=== PATIENT | male | born 1965 | race African-American/Black ===

== ENCOUNTER 2019-11-01 19:27 | Emergency (ER) | payer SELFPAY ==
--- NOTE | 2019-11-01 19:52 | EDM.PDOC ---
ED HPI GENERAL MEDICAL PROBLEM - General Chief Complaint: Respiratory Problem Stated Complaint: ASTHMA Time Seen by Provider: 11/01/19 19:52 Source of Information: Reports: Patient History Limitations: Reports: No Limitations - History of Present Illness INITIAL COMMENTS - FREE TEXT/NARRATIVE: HISTORY AND PHYSICAL: History of present illness: Patient is a 53-year-old male presents to the ED with complaint of COPD exacerbation. Patient states he has had wheezing and occasional shortness of breath for the past week. He reports a dry cough but this is not new or worsened than his usual. He denies fevers or chills, chest pain and no sick contacts. He states he has been using his rescue inhaler and duoneb about every 4 hours and this does help with wheezing. 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 Review of systems: As per history of present illness and below otherwise all systems reviewed and negative. Past medical history: As per history of present illness and as reviewed below otherwise noncontributory. Surgical history: As per history of present illness and as reviewed below otherwise noncontributory. Social history: No reported history of drug or alcohol abuse. Family history: As per history of present illness and as reviewed below otherwise noncontributory. Physical exam: General: Patient sitting comfortably in no acute distress and nontoxic appearing HEENT: Atraumatic, normocephalic, pupils reactive, negative for conjunctival pallor or scleral icterus, mucous membranes moist, throat clear, neck supple, nontender, trachea midline. No meningeal signs. Lungs: Wheezing throughout all lung maddox chest nontender. Heart: S1S2, regular, negative for clicks, rubs, or overt murmur. Abdomen: Soft, nondistended, nontender. Negative for masses or hepatosplenomegaly. Negative for costovertebral tenderness. No rigidity, rebound , guarding. Pelvis: Stable nontender. Genitourinary: Deferred. Rectal: Deferred. Extremities: Atraumatic, negative for cords or calf pain. Neurovascular unremarkable. Neuro: Awake, alert, oriented. Cranial nerves II through XII unremarkable. Cerebellum unremarkable. Motor and sensory unremarkable throughout. Exam nonfocal. Notes: Diagnostics: CXR declined labs Therapeutics: Solumedrol 125mg IM Prescriptions: Ventolin inhaler Medrol dosepak Azithromycin Impression: COPD exacerbation Plan: Take medications as prescribed Follow up with primary care provider Return to ED as needed as discussed Definitive disposition and diagnosis as appropriate pending reevaluation and review of above. - Related Data Allergies Allergy/AdvReac Type Severity Reaction Status Date / Time No Known Allergies Allergy Verified 11/01/19 19:51 Home Meds: Home Meds Albuterol Sulfate [Albuterol Sulfate Hfa] 2 puff INH Q4H PRN 11/01/19 [History] Albuterol [Ventolin HFA] 1 puff INH Q4H #1 inhaler 11/01/19 [Rx] Azithromycin [Zithromax] 250 mg PO ASDIRECTED #1 dosepk 11/01/19 [Rx] methylPREDNISolone [Medrol] 4 mg PO ASDIRECTED #1 tab.ds.pk 11/01/19 [Rx] ED ROS GENERAL - Review of Systems Review Of Systems: Comprehensive ROS is negative, except as noted in HPI. ED EXAM, GENERAL - Physical Exam Exam: See Below (see dictation) Course - Vital Signs Last Recorded V/S: Last Vital Signs Temp 97.3 F 11/01/19 19:41 Pulse 92 11/01/19 19:41 Resp 20 11/01/19 19:41 BP 148/89 H 11/01/19 19:41 Pulse Ox 96 11/01/19 19:41 - Orders/Labs/Meds Meds: Medications Discontinued Medications Generic Name Dose Route Start Last Admin Trade Name Freq PRN Reason Stop Dose Admin Methylprednisolone Sodium Succinate 125 mg 11/01/19 20:01 11/01/19 20:16 Solu-Medrol IVPUSH 11/01/19 20:02 Not Given ONETIME ONE Methylprednisolone Sodium Succinate 125 mg 11/01/19 20:10 11/01/19 20:14 Solu-Medrol IM 11/01/19 20:11 125 mg ONETIME ONE Administration Departure - Departure Time of Disposition: 20:59 Disposition: Home, Self-Care 01 Condition: Good Clinical Impression: COPD exacerbation - Discharge Information Prescriptions: Albuterol [Ventolin HFA] 1 puff INH Q4H #1 inhaler Azithromycin [Zithromax] 250 mg PO ASDIRECTED #1 dosepk methylPREDNISolone [Medrol] 4 mg PO ASDIRECTED #1 tab.ds.pk Referrals: PCP,None [Primary Care Provider] - Forms: ED Department Discharge Additional Instructions: The following information is given to patients seen in the emergency department who are being discharged to home. This information is to outline your options for follow-up care. We provide all patients seen in our emergency department with a follow-up referral. The need for follow-up, as well as the timing and circumstances, are variable depending upon the specifics of your emergency department visit. If you don't have a primary care physician on staff, we will provide you with a referral. We always advise you to contact your personal physician following an emergency department visit to inform them of the circumstance of the visit and for follow-up with them and/or the need for any referrals to a consulting specialist. The emergency department will also refer you to a specialist when appropriate. This referral assures that you have the opportunity for follow-up care with a specialist. All of these measure are taken in an effort to provide you with optimal care, which includes your follow-up. Under all circumstances we always encourage you to contact your private physician who remains a resource for coordinating your care. When calling for follow-up care, please make the office aware that this follow-up is from your recent emergency room visit. If for any reason you are refused follow-up, please contact the [facility] Emergency Department at and asked to speak to the emergency department charge nurse. [facility] [address] [place] [address] [place] [address] Take medications as prescribed Follow up with primary care provider Return to ED as needed as discussed Sepsis Event Note - Evaluation Sepsis Screening Result: No Definite Risk - Focused Exam Vital Signs: Vital Signs Temp Pulse Resp BP Pulse Ox 11/01/19 19:41 97.3 F 92 20 148/89 H 96 Date Exam was Performed: 11/01/19 Time Exam was Performed: 21:00
[2019-11-01] MEDS ORDERED: methylPREDNISolone Sodium Succinate 125 MG/2 ML SDV IVPUSH ONE (20:01)
[2019-11-01] MEDS ORDERED: methylPREDNISolone Sodium Succinate 125 MG/2 ML SDV IM ONE (20:10)
--- NOTE | 2019-11-01 20:55 | CR ---
INDICATION: pt w/cp, sob. INDICATION: Chest pain, shortness of breath. TECHNIQUE: Chest 1 view. COMPARISON: None FINDINGS: Cardiovascular and mediastinum: Heart size and vasculature are normal in caliber and appearance. Mediastinum is within normal limits. Lungs and pleural space: Lungs are clear. No sign of infiltrate or mass. No sign of pleural effusion. No pneumothorax. Bones and soft tissues: No significant findings. IMPRESSION: Lungs are clear. Dictated by Jerson Martinez MD @ 11/01/2019 8:54:51 PM Dictated by: Jerson Martinez MD @ 11/01/2019 20:54:56 (Electronically Signed)
== END 2019-11-01 21:16 | disposition home or self-care (01) ==
LOC: MW.ED 19:27
DX: J44.1 Chronic obstructive pulmonary disease with (acute) exacerbation (principal)
CPT/HCPCS: 71045; 96372; 99284; J2930; 99283

== ENCOUNTER 2019-12-14 09:39 | Emergency (ER) | payer OTHER ==
[2019-12-14] MEDS ORDERED: Doxycycline 100 MG Cap PO ONE (10:07)
[2019-12-14] MEDS ORDERED: Albuterol/Ipratropium 3.0-0.5 MG/3 ML Neb Soln NEB ONE (10:07)
--- NOTE | 2019-12-14 10:19 | EDM.PDOC ---
ED [facility] GENERAL MEDICAL PROBLEM - General Chief Complaint: Respiratory Problem Stated Complaint: ASTHMA Time Seen by Provider: 12/14/19 09:48 - History of Present Illness INITIAL COMMENTS - FREE TEXT/NARRATIVE: HISTORY AND PHYSICAL: History of present illness: This 53-year-old male with a past medical history of COPD, asthma, and tobacco dependence resolved presents to the emergency department complaining of shortness of breath. He has been using his rescue inhaler all morning and has not been getting better. He tried his nebulizer machine with albuterol and did not improve. He also uses Advair and has not missed any doses. He denies any fever, he has had increased sputum with changes in color, and denies any other symptoms. No other modifying, aggravating or alleviating factors. He rates this as severe. No other associated signs or symptoms. Review of systems: A 10-point review of systems, other than pertinent positives and negatives as stated per HPI, is otherwise negative. Past medical history: As per history of present illness and as reviewed below otherwise noncontributory. Surgical history: As per history of present illness and as reviewed below otherwise noncontributory. Social history: No reported history of drug or alcohol abuse. Family history: As per history of present illness and as reviewed below otherwise noncontributory. Physical exam: VITAL SIGNS: Reviewed. GENERAL: Mild resting tachypnea. No accessory muscle use. No sternocleidomastoid involvement. Appears to be in mild distress HEAD: No signs of head trauma. EYES: Pupils are equal. Extraocular motions intact. EARS: Hearing grossly intact. MOUTH: Oropharynx is normal. NECK: No adenopathy, no JVD. CHEST: Bilateral inspiratory expiratory wheezing. Diminished at the bases. CARDIAC: Regular rate and rhythm. Normal S1 and S2, without murmurs, gallops, or rubs. VASCULAR: Peripheral pulses normal and equal in all extremities. ABDOMEN: Soft, without detectable tenderness. No sign of distention. No rebound or guarding, and no masses palpated. MUSCULOSKELETAL: Good range of motion of all major joints. Extremities without clubbing, cyanosis or edema. NEUROLOGIC EXAM: Alert and oriented x 3. No focal sensory or motor deficits. Speech normal. Follows commands. PSYCHIATRIC: Mood normal. SKIN: No rash or lesions. Initial Differential Diagnosis & Plan: Differential diagnosis includes asthma, chronic obstructive pulmonary disease, hypoxia, bronchitis, influenza, influenza-like illness, pneumonia The patient presents with bronchospasm and has signs and symptoms of COPD exacerbation. I will treat him with DuoNeb, steroids and antibiotics. Plan for discharge home. Definitive disposition and diagnosis as appropriate pending reevaluation and review of above. - Related Data Allergies Allergy/AdvReac Type Severity Reaction Status Date / Time No Known Allergies Allergy Verified 12/14/19 09:56 Home Meds: Home Meds Albuterol [Ventolin HFA] 1 puff INH Q4H #1 inhaler 11/01/19 [Rx] Cetirizine HCl [Zyrtec] 10 mg PO TID 14 Days #40 capsule 12/14/19 [Rx] Doxycycline [Vibramycin] 100 mg PO BID 7 Days #14 tab 12/14/19 [Rx] Ipratropium [Atrovent] 0.5 mg .XX BID #30 neb 12/14/19 [Rx] Lactobacillus 3/Fos/Pantethine [Probiotic & Acidophilus] 1 each PO BID 30 Days # 60 capsule 12/14/19 [Rx] predniSONE [Prednisone] 50 mg PO DAILY 5 Days #5 tablet 12/14/19 [Rx] Past Medical History HEENT History: Reports: None Cardiovascular History: Reports: None Respiratory History: Reports: Asthma, COPD Gastrointestinal History: Reports: None Genitourinary History: Reports: None Musculoskeletal History: Reports: None Neurological History: Reports: None Psychiatric History: Reports: None Endocrine/Metabolic History: Reports: None Hematologic History: Reports: None Immunologic History: Reports: None Oncologic (Cancer) History: Reports: None Dermatologic History: Reports: None - Infectious Disease History Infectious Disease History: Reports: None - Past Surgical History Head Surgeries/Procedures: Reports: None HEENT Surgical History: Reports: None Cardiovascular Surgical History: Reports: None Respiratory Surgical History: Reports: None GI Surgical History: Reports: None Male Surgical History: Reports: None Endocrine Surgical History: Reports: None Neurological Surgical History: Reports: None Musculoskeletal Surgical History: Reports: None Oncologic Surgical History: Reports: None Dermatological Surgical History: Reports: None Social & Family History - Family History Family Medical History: Noncontributory - Tobacco Use Smoking Status *Q: Former Smoker Used Tobacco, but Quit: Yes Month/Year Tobacco Last Used: quit 4 years - Caffeine Use Caffeine Use: Reports: Coffee - Recreational Drug Use Recreational Drug Use: No ED ROS GENERAL - Review of Systems Review Of Systems: Unable To Obtain (see above) Reason Not Obtained: see above ED EXAM, GENERAL - Physical Exam Exam: Not Obtained (see above) Course - Vital Signs Last Recorded V/S: Last Vital Signs Temp 97.1 F 12/14/19 09:57 Pulse 83 12/14/19 09:57 Resp 18 12/14/19 09:57 BP 139/86 12/14/19 09:57 Pulse Ox 97 12/14/19 09:57 - Orders/Labs/Meds Orders: Active Orders 24 hr Category Date Time Status RT Aerosol Therapy [RC] ASDIRECTED Care 12/14/19 10:08 Ordered Meds: Medications Discontinued Medications Generic Name Dose Route Start Last Admin Trade Name Freq PRN Reason Stop Dose Admin Albuterol/Ipratropium 3 ml 12/14/19 10:07 Duoneb 3.0-0.5 Mg/3 Ml NEB 12/14/19 10:08 ONETIME ONE Dexamethasone 10 mg 12/14/19 10:07 Dexamethasone PO 12/14/19 10:08 ONETIME ONE Doxycycline Hyclate 200 mg 12/14/19 10:07 Vibramycin PO 12/14/19 10:08 ONETIME ONE Departure - Departure Time of Disposition: 10:19 Disposition: Home, Self-Care 01 Condition: Good Clinical Impression: COPD exacerbation, Acute bronchospasm - Discharge Information *PRESCRIPTION DRUG MONITORING PROGRAM REVIEWED*: Not Applicable *COPY OF PRESCRIPTION DRUG MONITORING REPORT IN PATIENT ELIECER: Not Applicable Prescriptions: Cetirizine HCl [Zyrtec] 10 mg PO TID 14 Days #40 capsule Doxycycline [Vibramycin] 100 mg PO BID 7 Days #14 tab Ipratropium [Atrovent] 0.5 mg .XX BID #30 neb Lactobacillus 3/Fos/Pantethine [Probiotic & Acidophilus] 1 each PO BID 30 Days # 60 capsule predniSONE [Prednisone] 50 mg PO DAILY 5 Days #5 tablet Instructions: Bronchospasm, Adult, Chronic Obstructive Pulmonary Disease Exacerbation, [id number] Referrals: PCP,None [Primary Care Provider] - Additional Instructions: The following information is given to patients seen in the emergency department who are being discharged to home. This information is to outline your options for follow-up care. We provide all patients seen in our emergency department with a follow-up referral. The need for follow-up, as well as the timing and circumstances, are variable depending upon the specifics of your emergency department visit. If you don't have a primary care physician on staff, we will provide you with a referral. We always advise you to contact your personal physician following an emergency department visit to inform them of the circumstance of the visit and for follow-up with them and/or the need for any referrals to a consulting specialist. The emergency department will also refer you to a specialist when appropriate. This referral assures that you have the opportunity for follow-up care with a specialist. All of these measure are taken in an effort to provide you with optimal care, which includes your follow-up. Under all circumstances we always encourage you to contact your private physician who remains a resource for coordinating your care. When calling for follow-up care, please make the office aware that this follow-up is from your recent emergency room visit. If for any reason you are refused follow-up, please contact the [facility] Emergency Department at and asked to speak to the emergency department charge nurse. Thank you for coming to [facility] emergency department for your healthcare needs today. Please return immediately for fever, trouble breathing , or any other concerns. We have diagnosed you with COPD exacerbation based on your symptoms and findings today. You do not have clear findings of pneumonia. We will start you on antibiotics, steroids and add Atrovent to your nebulizer for at home. You do not need to use this every day. I recommend that you use the Atrovent twice a day for the next 2 to 3 days. Please use the steroids as directed. Remember we are always happy to see you and return as you feel as needed. Sepsis Event Note - Evaluation Sepsis Screening Result: No Definite Risk - Focused Exam Vital Signs: Vital Signs Temp Pulse Resp BP Pulse Ox 12/14/19 09:57 97.1 F 83 18 139/86 97 Date Exam was Performed: 12/14/19 Time Exam was Performed: 10:11 - My Orders Last 24 Hours: My Active Orders 12/14/19 10:08 RT Aerosol Therapy [RC] ASDIRECTED - Assessment/Plan Last 24 Hours: My Active Orders 12/14/19 10:08 RT Aerosol Therapy [RC] ASDIRECTED
[2019-12-14] MEDS ORDERED: Dexamethasone 4 MG Tab PO ONE (10:22)
== END 2019-12-14 10:45 | disposition home or self-care (01) ==
LOC: MW.ED 09:39
DX: J44.1 Chronic obstructive pulmonary disease with (acute) exacerbation (principal); J98.01 Acute bronchospasm; Z87.891 Personal history of nicotine dependence
CPT/HCPCS: 99284; A9270; J8540; 99283; J7620-GY

== ENCOUNTER 2020-01-17 14:52 | Observation (INO) | payer OTHER ==
[2020-01-17] MEDS ORDERED: Albuterol 8 GM Inhaler INH ONE (15:05)
[2020-01-17] MEDS ORDERED: methylPREDNISolone Sodium Succinate 125 MG/2 ML SDV IVPUSH ONE (15:06)
--- NOTE | 2020-01-17 15:12 | EDM.PDOC ---
ED HPI GENERAL MEDICAL PROBLEM - General Chief Complaint: Respiratory Problem Stated Complaint: SOB Time Seen by Provider: 01/17/20 14:53 - History of Present Illness INITIAL COMMENTS - FREE TEXT/NARRATIVE: 54-year-old male with history of COPD on Advair and pro-air presenting with persistent shortness of breath. Patient feels like his symptoms have really been going on for nearly a month. At the end of November he was seen here and treated with steroids neb treatments and a course of doxycycline. He reports some minimal improvement with that. He traveled home to [place] on December 28 and at that time ended up hospitalized briefly. He reports COVID test was negative at that time. He presents again today with persistent shortness of breath worse over the last week associated with a cough that is occasionally productive. He endorses chest pain during the active coughing but denies chest pain otherwise no lower extremity pain or swelling no history of DVT or PE. Denies history of CAD other heart disease. Denies exertional chest pain denies fever. Does report one episode of posttussive emesis last night. Symptoms are constant moderate to severe without alleviating factors radiation or other associated symptoms. - Related Data Allergies Allergy/AdvReac Type Severity Reaction Status Date / Time No Known Allergies Allergy Verified 01/17/20 15:01 Home Meds: Home Meds Albuterol [Ventolin HFA] 1 puff INH Q4H #1 inhaler 11/01/19 [Rx] Ipratropium [Atrovent] 0.5 mg .XX BID #30 neb 12/14/19 [Rx] Past Medical History HEENT History: Reports: None Cardiovascular History: Reports: None Respiratory History: Reports: Asthma, COPD Gastrointestinal History: Reports: None Genitourinary History: Reports: None Musculoskeletal History: Reports: None Neurological History: Reports: None Psychiatric History: Reports: None Endocrine/Metabolic History: Reports: None Hematologic History: Reports: None Immunologic History: Reports: None Oncologic (Cancer) History: Reports: None Dermatologic History: Reports: None - Infectious Disease History Infectious Disease History: Reports: None - Past Surgical History Head Surgeries/Procedures: Reports: None HEENT Surgical History: Reports: None Cardiovascular Surgical History: Reports: None Respiratory Surgical History: Reports: None GI Surgical History: Reports: None Male Surgical History: Reports: None Endocrine Surgical History: Reports: None Neurological Surgical History: Reports: None Musculoskeletal Surgical History: Reports: None Oncologic Surgical History: Reports: None Dermatological Surgical History: Reports: None Social & Family History - Family History Family Medical History: Noncontributory - Tobacco Use Smoking Status *Q: Never Smoker - Caffeine Use Caffeine Use: Reports: Coffee - Recreational Drug Use Recreational Drug Use: No ED ROS GENERAL - Review of Systems Review Of Systems: See Below Free Text/Narrative/Comment: General: No fever. Skin: No rash. Eyes: No vision problems. ENT: No sore throat. Neck: No neck stiffness. Respiratory: Per HPI Cardiac: No chest pain. Gastrointestinal: No nausea, vomiting or abdominal pain. Urinary: No dysuria. Musculoskeletal: No myalgias/arthralgias. Neurologic: No headache. ED EXAM, GENERAL - Physical Exam Exam: See Below Free Text/Narrative:: General Appearance: No acute distress, appears comfortable Skin: No rash HEENT: Normocephalic/atraumatic, sclera anicteric, mucous membranes moist Neck: Normal range of motion Chest and Lungs: Bilateral diffuse high-pitched monophasic expiratory wheezing with prolonged expiratory phase no accessory muscle use Cardiovascular: Regular rate and rhythm, no murmur, no lower extremity edema Abdomen: Soft, non-tender Back: Normal Musculoskeletal: No edema or tenderness Neurologic: Awake, alert, no obvious deficits, moving all extremities Psychiatric: Appropriate, cooperative EKG INTERPRETATION EKG Date: 01/17/20 Time: 15:10 Rhythm: NSR Rate (Beats/Min): 81 [place]: Normal P-Wave: Present EKG Interpretation Comments: EKG demonstrates normal sinus rhythm there are marked sawtooth appearing flutter waves in 2 3 aVF and aVR. However, I would favor artifact given the lack of presence in the other leads and the fact that it is otherwise convincingly normal sinus. Patient does have lateral T wave inversions that could represent ischemia. But no ST elevations or depressions. Course - Vital Signs Last Recorded V/S: Last Vital Signs Temp 96.2 F L 01/17/20 14:58 Pulse 91 01/17/20 16:27 Resp 17 01/17/20 16:27 BP 116/77 01/17/20 16:27 Pulse Ox 93 L 01/17/20 16:27 - Orders/Labs/Meds Orders: Active Orders 24 hr Category Date Time Status Patient Status [ADT] Stat ADT 01/17/20 16:55 Ordered EKG 12 Lead [EKG Documentation Completion] [RC] STAT Care 01/17/20 15:07 Active EKG 12 Lead [EKG Documentation Completion] [] STAT Care 01/17/20 16:42 Active RT Post Treatment Assessment [RC] Click to Edit Care 01/17/20 15:05 Active RT Pre-Treatment Assessment [RC] Click to Edit Care 01/17/20 15:05 Active Magnesium Sulfate/Water [Magnesium Sulfate in Water Med 01/17/20 16:55 Active Premix] 2 gm Premix Bag 1 bag IV ONETIME Medication Orders Magnesium Sulfate 2 gm/ Premix 50 mls @ 50 mls/hr IV ONETIME ONE Stop: 01/17/20 17:54 Labs: Laboratory Tests 01/17/20 01/17/20 01/17/20 Range/Units 15:25 15:25 15:25 WBC 12.32 H (4.0-11.0) K/uL RBC 5.35 (4.50-5.90) M/uL Hgb 15.3 (13.0-17.0) g/dL Hct 43.8 (38.0-50.0) % MCV 81.9 (80.0-98.0) fL MCH 28.6 (27.0-32.0) pg MCHC 34.9 (31.0-37.0) g/dL RDW Std Deviation 46.0 (28.0-62.0) fl RDW Coeff of Cortes 15 (11.0-15.0) % Plt Count 224 (150-400) K/uL MPV 11.40 (7.40-12.00) fL Add Manual Diff YES Neutrophils % (Manual) 74 (48.0-80.0) % Band Neutrophils % 7 % Lymphocytes % (Manual) 12 L (16.0-40.0) % Monocytes % (Manual) 5 (0.0-15.0) % Eosinophils % (Manual) 1 (0.0-7.0) % Basophils % (Manual) 1 (0.0-1.5) % Absolute Seg Neuts 9.1 H (1.4-5.7) Band Neutrophils # 0.9 Lymphocytes # (Manual) 1.5 (0.6-2.4) Monocytes # (Manual) 0.6 (0.0-0.8) Eosinophils # (Manual) 0.1 (0.0-0.7) Basophils # (Manual) 0.1 (0.0-0.1) D-Dimer, Quantitative (0.0-0.50) mg/L FEU Sodium 142 (136-148) mmol/L Potassium 3.4 L (3.5-5.1) mmol/L Chloride 104 (98-107) mmol/L Carbon Dioxide 27.9 (21.0-32.0) mmol/L BUN 14 (7.0-18.0) mg/dL Creatinine 1.3 (0.8-1.3) mg/dL Est Cr Clr Drug Dosing 60.03 mL/min Estimated GFR (MDRD) > 60.0 ml/min Glucose 191 H (74-106) mg/dL Calcium 8.8 (8.5-10.1) mg/dL Troponin I < 0.050 (0.000-0.056) ng/mL B-Natriuretic Peptide 49 (<100) PG/ML SARS Virus RNA (PCR) (NEGATIVE) 01/17/20 01/17/20 Range/Units 15:25 15:34 WBC (4.0-11.0) K/uL RBC (4.50-5.90) M/uL Hgb (13.0-17.0) g/dL Hct (38.0-50.0) % MCV (80.0-98.0) fL MCH (27.0-32.0) pg MCHC (31.0-37.0) g/dL RDW Std Deviation (28.0-62.0) fl RDW Coeff of Cortes (11.0-15.0) % Plt Count (150-400) K/uL MPV (7.40-12.00) fL Add Manual Diff Neutrophils % (Manual) (48.0-80.0) % Band Neutrophils % % Lymphocytes % (Manual) (16.0-40.0) % Monocytes % (Manual) (0.0-15.0) % Eosinophils % (Manual) (0.0-7.0) % Basophils % (Manual) (0.0-1.5) % Absolute Seg Neuts (1.4-5.7) Band Neutrophils # Lymphocytes # (Manual) (0.6-2.4) Monocytes # (Manual) (0.0-0.8) Eosinophils # (Manual) (0.0-0.7) Basophils # (Manual) (0.0-0.1) D-Dimer, Quantitative 0.43 (0.0-0.50) mg/L FEU Sodium (136-148) mmol/L Potassium (3.5-5.1) mmol/L Chloride (98-107) mmol/L Carbon Dioxide (21.0-32.0) mmol/L BUN (7.0-18.0) mg/dL Creatinine (0.8-1.3) mg/dL Est Cr Clr Drug Dosing mL/min Estimated GFR (MDRD) ml/min Glucose (74-106) mg/dL Calcium (8.5-10.1) mg/dL Troponin I (0.000-0.056) ng/mL B-Natriuretic Peptide (<100) PG/ML SARS Virus RNA (PCR) NEGATIVE (NEGATIVE) Meds: Medications Generic Name Dose Route Start Last Admin Trade Name Freq PRN Reason Stop Dose Admin Magnesium Sulfate 2 gm/ Premix 50 mls @ 50 mls/hr 01/17/20 16:55 IV 01/17/20 17:54 ONETIME ONE Discontinued Medications Generic Name Dose Route Start Last Admin Trade Name Freq PRN Reason Stop Dose Admin Albuterol 4 gm 01/17/20 15:05 01/17/20 15:15 Ventolin Hfa INH 01/17/20 15:06 4 puff ONETIME ONE Administration Magnesium Sulfate 2 gm/ Sodium 54 mls @ 162 mls/hr 01/17/20 16:45 Chloride IV ASDIRECTED KVNG Protocol 6 GM/HR Methylprednisolone Sodium Succinate 125 mg 01/17/20 15:06 01/17/20 15:15 Solu-Medrol IVPUSH 01/17/20 15:07 125 mg ONETIME ONE Administration Departure - Departure Time of Disposition: 16:59 Disposition: Refer to Observation Condition: Fair Clinical Impression: Bronchospasm - Discharge Information *PRESCRIPTION DRUG MONITORING PROGRAM REVIEWED*: Not Applicable *COPY OF PRESCRIPTION DRUG MONITORING REPORT IN PATIENT ELIECER: Not Applicable Referrals: PCP,None [Primary Care Provider] - Forms: ED Department Discharge Sepsis Event Note (ED) - Evaluation Sepsis Screening Result: No Definite Risk - Focused Exam Vital Signs: Vital Signs Temp Pulse Resp BP Pulse Ox 01/17/20 16:27 91 17 116/77 93 L 01/17/20 15:58 96 16 144/89 H 100 01/17/20 14:58 96.2 F L 90 18 123/81 94 L - My Orders Last 24 Hours: My Active Orders 01/17/20 15:05 RT Post Treatment Assessment [RC] Click to Edit RT Pre-Treatment Assessment [RC] Click to Edit 01/17/20 15:07 EKG 12 Lead [EKG Documentation Completion] [RC] STAT 01/17/20 16:42 EKG 12 Lead [EKG Documentation Completion] [RC] STAT 01/17/20 16:55 Patient Status [ADT] Stat Magnesium Sulfate/Water [Magnesium Sulfate in Water Premix] 2 gm Premix Bag 1 bag IV ONETIME - Assessment/Plan Last 24 Hours: My Active Orders 01/17/20 15:05 RT Post Treatment Assessment [RC] Click to Edit RT Pre-Treatment Assessment [RC] Click to Edit 01/17/20 15:07 EKG 12 Lead [EKG Documentation Completion] [RC] STAT 01/17/20 16:42 EKG 12 Lead [EKG Documentation Completion] [RC] STAT 01/17/20 16:55 Patient Status [ADT] Stat Magnesium Sulfate/Water [Magnesium Sulfate in Water Premix] 2 gm Premix Bag 1 bag IV ONETIME Assessment:: 54-year-old male presenting with 1 month of persistent shortness of breath and expiratory wheezing that has not responded to typical COPD treatment. Given this we will bronchospasm is certainly a consideration and would treat with albuterol inhaler and Solu-Medrol also need to consider alternative etiologies including pneumonia. This is felt less likely given lack of fever but chest x- ray pending. PE is a consideration as well that said patient would be relatively low risk for this and d-dimer has been sent. New heart disease is a consideration I think that is much less likely in this case there is no lower extremity edema there is no other signs of heart failure he has no prior history of heart disease. That said EKG troponin and BNP ordered. COVID-19 needs to be considered as well. Though he has had negative screen in the past he continues to be symptomatic he is high risk and we no other depending on the testing mechanism use the sensitivity can be as low as 75%. 1700: Patient's labs are normal d-dimer normal initial troponin normal. Repeat EKG shows none of the initial artifact it is clearly sinus he continues to have the lateral T wave inversions but symptoms have been present for many days and troponin was normal. EKG without signs of pneumonia or CHF. COVID was negative. Unfortunately the patient remained short of breath he continues to have audible wheezing that can be heard without a stethoscope. Given this and the failure of extensive outpatient treatment patient discussed in full with the hospitalist and we will admit to telemetry under observation for ongoing treatment and reassessment.
--- NOTE | 2020-01-17 15:29 | CR ---
Chest: Portable view of the chest was obtained. Comparison: Prior chest x-ray of 11/01/19. Heart size and mediastinum are normal. Lungs are clear with no acute parenchymal change. Bony structures are unremarkable. Impression: 1. Nothing acute is appreciated on portable chest x-ray. Diagnostic code #1 This report was dictated in MDT
[2020-01-17 15:56] LABS: BLOOD UREA NITROGEN,BUN 14 mg/dL (7.0-18.0); CARBON DIOXIDE,CO2 27.9 mmol/L (21.0-32.0); CHLORIDE,CL 104 mmol/L (98-107); GLUCOSE RANDOM 191 mg/dL (74-106); POTASSIUM,K 3.4 mmol/L (3.5-5.1); SODIUM,NA 142 mmol/L (136-148)
[2020-01-17] MEDS ORDERED: Magnesium Sulfate/Water 50 ML ONE (16:54)
[2020-01-17] MEDS ORDERED: Magnesium Sulfate/Water 2 GM in Premix Bag 1 BAG IV ONE (16:55)
[2020-01-17] MEDS ORDERED: Lactated Ringers 1,000 ML IV SCH (18:30)
[2020-01-17] MEDS ORDERED: Albuterol/Ipratropium 3.0-0.5 MG/3 ML Neb Soln NEB PRN (18:32)
[2020-01-17] MEDS ORDERED: Potassium Chloride 10% 20 MEQ/15 ML Soln 30 ML UD Cup PO ONE (19:54)
--- NOTE | 2020-01-17 19:56 | PCM.HP.2 ---
H&P History of Present Illness - General Date of Service: 01/17/20 Admit Problem/Dx: Admission Diagnosis/Problem Admission Diagnosis/Problem Bronchospasm - History of Present Illness Initial Comments - Free Text/Narative: 54-year-old male with history of COPD/Asthma on pro-air presenting with shortness of breath. According to th epatiewnt his SOB has been on going for past few weeks , he was prescribed short course of steroids and PO antibiotics (doxycycline) but symptoms persisted after initial improvement.He traveled home to [place] on December 28 and at that time he ended up hospitalized briefly. states he was tested for COVID which was was negative at that time. Patient also c/o persistant cough and some sputum production. Denied any chest pain, other than musculoskeletal pain during coughing, no lower extremity pain or swelling no history of DVT or PE. Denies history of CAD other heart disease, denies fever, chills. Does report one episode of posttussive emesis last night. In the ER most of the lab work was reassuring, his EKG didnt show any acute ischemic changes, but did show some non specific T wave changes likely chronic in nature. CXR unremarkable, Patient received IV steroids and Albuterol in the ER with minimal improvement. Patient was admitted for further management of his persis tent symptoms. - Related Data Allergies/Adverse Reactions: Allergies Allergy/AdvReac Type Severity Reaction Status Date / Time No Known Allergies Allergy Verified 01/17/20 18:32 Home Medications: Home Meds Albuterol [Ventolin HFA] 1 puff INH Q4H #1 inhaler 11/01/19 [Rx] Ipratropium [Atrovent] 0.5 mg .XX BID #30 neb 12/14/19 [Rx] Past Medical History HEENT History: Reports: None Cardiovascular History: Reports: None Respiratory History: Reports: Asthma, COPD Gastrointestinal History: Reports: None Genitourinary History: Reports: None Musculoskeletal History: Reports: None Neurological History: Reports: None Psychiatric History: Reports: None Endocrine/Metabolic History: Reports: None Hematologic History: Reports: None Immunologic History: Reports: None Oncologic (Cancer) History: Reports: None Dermatologic History: Reports: None - Infectious Disease History Infectious Disease History: Reports: None - Past Surgical History Head Surgeries/Procedures: Reports: None HEENT Surgical History: Reports: None Cardiovascular Surgical History: Reports: None Respiratory Surgical History: Reports: None GI Surgical History: Reports: None Male Surgical History: Reports: None Endocrine Surgical History: Reports: None Neurological Surgical History: Reports: None Musculoskeletal Surgical History: Reports: None Oncologic Surgical History: Reports: None Dermatological Surgical History: Reports: None Social & Family History - Family History Family Medical History: Noncontributory HEENT: Reports: None OBGYN: Reports: Oncologic: Reports: Leukemia - Tobacco Use Smoking Status *Q: Former Smoker Years of Tobacco use: 40 Packs/Tins Daily: 1 Used Tobacco, but Quit: Yes Month/Year Tobacco Last Used: 2015 Second Hand Smoke Exposure: No - Caffeine Use Caffeine Use: Reports: Coffee, Energy Drinks, Soda, Tea - Alcohol Use Days Per Week of Alcohol Use: 0 - Recreational Drug Use Recreational Drug Use: No H&P Review of Systems - Review of Systems: Review Of Systems: See Below General: Reports: Fever, Malaise, Fatigue. Denies: Chills HEENT: Denies: Dysphasia, Ear Pain Pulmonary: Reports: Shortness of Breath, Wheezing, Cough, Sputum. Denies: Pleuritic Chest Pain, Hemoptysis Cardiovascular: Reports: Dyspnea on Exertion, Orthopnea. Denies: Chest Pain, Palpitations, PND, Edema, Syncope Gastrointestinal: Reports: Decreased Appetite. Denies: Abdominal Pain, Anorexia, Black Stool, Bloody Stool, Diarrhea, Distension, Flatus, Hematemesis, Nausea, Vomiting Genitourinary: Denies: Dysuria, Frequency, Burning Musculoskeletal: Denies: Shoulder Pain, Arm Pain, Back Pain Skin: Denies: Mottled, Pallor, Diaphoresis Psychiatric: Denies: Depression, Mood Lability Exam - Exam Exam: See Below - Vital Signs Vital Signs: Last Vital Signs Temp 36.4 C 01/17/20 19:12 Pulse 87 01/17/20 19:12 Resp 18 01/17/20 19:12 BP 131/92 H 01/17/20 19:12 Pulse Ox 96 01/17/20 19:42 Weight: 81.601 kg - Exam Quality Assessment: No: Supplemental Oxygen General: Alert, Oriented Neck: Supple, Trachea Midline Lungs: Decreased Breath Sounds, Wheezing Cardiovascular: Regular Rate, Regular Rhythm, Normal S1, Normal S2 GI/Abdominal Exam: Normal Bowel Sounds, Soft, Tender (epigastric tenderness) - Patient Data Lab Results Last 24 hrs: Laboratory Results - last 24 hr 01/17/20 01/17/20 01/17/20 Range/Units 15:25 15:25 15:25 WBC 12.32 H (4.0-11.0) K/uL RBC 5.35 (4.50-5.90) M/uL Hgb 15.3 (13.0-17.0) g/dL Hct 43.8 (38.0-50.0) % MCV 81.9 (80.0-98.0) fL MCH 28.6 (27.0-32.0) pg MCHC 34.9 (31.0-37.0) g/dL RDW Std Deviation 46.0 (28.0-62.0) fl RDW Coeff of Cortes 15 (11.0-15.0) % Plt Count 224 (150-400) K/uL MPV 11.40 (7.40-12.00) fL Add Manual Diff YES Neutrophils % (Manual) 74 (48.0-80.0) % Band Neutrophils % 7 % Lymphocytes % (Manual) 12 L (16.0-40.0) % Monocytes % (Manual) 5 (0.0-15.0) % Eosinophils % (Manual) 1 (0.0-7.0) % Basophils % (Manual) 1 (0.0-1.5) % Absolute Seg Neuts 9.1 H (1.4-5.7) Band Neutrophils # 0.9 Lymphocytes # (Manual) 1.5 (0.6-2.4) Monocytes # (Manual) 0.6 (0.0-0.8) Eosinophils # (Manual) 0.1 (0.0-0.7) Basophils # (Manual) 0.1 (0.0-0.1) D-Dimer, Quantitative (0.0-0.50) mg/L FEU Sodium 142 (136-148) mmol/L Potassium 3.4 L (3.5-5.1) mmol/L Chloride 104 (98-107) mmol/L Carbon Dioxide 27.9 (21.0-32.0) mmol/L BUN 14 (7.0-18.0) mg/dL Creatinine 1.3 (0.8-1.3) mg/dL Est Cr Clr Drug Dosing 60.03 mL/min Estimated GFR (MDRD) > 60.0 ml/min Glucose 191 H (74-106) mg/dL Calcium 8.8 (8.5-10.1) mg/dL Troponin I < 0.050 (0.000-0.056) ng/mL B-Natriuretic Peptide 49 (<100) PG/ML SARS Virus RNA (PCR) (NEGATIVE) 01/17/20 01/17/20 Range/Units 15:25 15:34 WBC (4.0-11.0) K/uL RBC (4.50-5.90) M/uL Hgb (13.0-17.0) g/dL Hct (38.0-50.0) % MCV (80.0-98.0) fL MCH (27.0-32.0) pg MCHC (31.0-37.0) g/dL RDW Std Deviation (28.0-62.0) fl RDW Coeff of Cortes (11.0-15.0) % Plt Count (150-400) K/uL MPV (7.40-12.00) fL Add Manual Diff Neutrophils % (Manual) (48.0-80.0) % Band Neutrophils % % Lymphocytes % (Manual) (16.0-40.0) % Monocytes % (Manual) (0.0-15.0) % Eosinophils % (Manual) (0.0-7.0) % Basophils % (Manual) (0.0-1.5) % Absolute Seg Neuts (1.4-5.7) Band Neutrophils # Lymphocytes # (Manual) (0.6-2.4) Monocytes # (Manual) (0.0-0.8) Eosinophils # (Manual) (0.0-0.7) Basophils # (Manual) (0.0-0.1) D-Dimer, Quantitative 0.43 (0.0-0.50) mg/L FEU Sodium (136-148) mmol/L Potassium (3.5-5.1) mmol/L Chloride (98-107) mmol/L Carbon Dioxide (21.0-32.0) mmol/L BUN (7.0-18.0) mg/dL Creatinine (0.8-1.3) mg/dL Est Cr Clr Drug Dosing mL/min Estimated GFR (MDRD) ml/min Glucose (74-106) mg/dL Calcium (8.5-10.1) mg/dL Troponin I (0.000-0.056) ng/mL B-Natriuretic Peptide (<100) PG/ML SARS Virus RNA (PCR) NEGATIVE (NEGATIVE) Result Diagrams: 01/17/20 15:25 01/17/20 15:25 Sepsis Event Note - Evaluation Sepsis Screening Result: No Definite Risk - Focused Exam Vital Signs: Vital Signs Temp Pulse Resp BP Pulse Ox Pulse Ox 01/17/20 19:42 96 01/17/20 19:12 36.4 C 87 18 131/92 H 92 L 01/17/20 16:27 91 17 116/77 93 L 01/17/20 15:58 96 16 144/89 H 100 01/17/20 14:58 35.7 C L 90 18 123/81 94 L Date Exam was Performed: 01/18/20 Time Exam was Performed: 01:09 - Problem List (1) Bronchitis SNOMED Code(s): 86107577 ICD Code: J40 - BRONCHITIS, NOT SPECIFIED ACUTE OR CHRONIC Status: Acute Current Visit: Yes (2) COPD exacerbation SNOMED Code(s): 473074634 ICD Code: J44.1 - CHRONIC OBSTRUCTIVE PULMONARY DISEASE W (ACUTE) EXACERBATION Status: Acute Current Visit: No (3) HTN (hypertension) SNOMED Code(s): 51181480 ICD Code: I10 - ESSENTIAL (PRIMARY) HYPERTENSION Status: Acute Current Visit: Yes (4) Hypokalemia SNOMED Code(s): 36608595 ICD Code: E87.6 - HYPOKALEMIA Status: Acute Current Visit: Yes Problem List Initiated/Reviewed/Updated: Yes Orders Last 24hrs: Active Orders 24 hr Category Date Time Status Patient Status [ADT] Stat ADT 01/17/20 16:55 Active Ambulate [RC] ASDIRECTED Care 01/17/20 18:25 Active Antiembolic Devices [RC] PER UNIT ROUTINE Care 01/17/20 18:29 Active Oxygen Therapy [RC] ASDIRECTED Care 01/17/20 18:25 Active Pulse Oximetry [RC] ASDIRECTED Care 01/17/20 18:26 Active RT Aerosol Therapy [RC] ASDIRECTED Care 01/17/20 18:28 Active RT Aerosol Therapy [RC] ASDIRECTED Care 01/17/20 18:33 Active RT Post Treatment Assessment [RC] Click to Edit Care 01/17/20 15:05 Active RT Pre-Treatment Assessment [RC] Click to Edit Care 01/17/20 15:05 Active Telemetry Monitoring [Cardiac Monitoring] [RC] . Care 01/17/20 18:20 Active DIRECTED Vital Signs [RC] Q4H Care 01/17/20 18:25 Active Cardiac [Heart Healthy Diet] [DIET] Diet 01/17/20 Dinner Active Albuterol/Ipratropium [DuoNeb 3.0-0.5 MG/3 ML] Med 01/17/20 18:32 Active 3 ml NEB Q4HRRT PRN Albuterol/Ipratropium [DuoNeb 3.0-0.5 MG/3 ML] Med 01/18/20 19:53 Ordered 3 ml NEB Q6HRRT Lactated Ringers [Ringers, Lactated] 1,000 ml Med 01/17/20 18:30 Active IV ASDIRECTED Montelukast [Singulair] Med 01/17/20 21:00 Ordered 10 mg PO BEDTIME Potassium Chloride Med 01/17/20 19:54 Once 40 meq PO ONETIME ONE methylPREDNISolone Sod Succ [Solu-MEDROL] Med 01/18/20 04:00 Ordered 40 mg IVPUSH Q12H SCD [Sequential Compression Device] [OM.PC] Routine Oth 01/17/20 18:29 Ordered Medication Orders Albuterol/Ipratropium (Duoneb 3.0-0.5 Mg/3 Ml) 3 ml NEB Q4HRRT PRN PRN Reason: Wheezing Albuterol/Ipratropium (Duoneb 3.0-0.5 Mg/3 Ml) 3 ml NEB Q6HRRT KVNG Lactated Ringer's (Ringers, Lactated) 1,000 mls @ 100 mls/hr IV ASDIRECTED KVNG Last Admin: 01/17/20 19:11 Dose: 100 mls/hr Documented by: STELLA Methylprednisolone Sodium Succinate (Solu-Medrol) 40 mg IVPUSH Q12H KVNG Montelukast Sodium (Singulair) 10 mg PO BEDTIME KVNG Potassium Chloride (Potassium Chloride) 40 meq PO ONETIME ONE Stop: 07/04/20 19:55 Assessment/Plan Comment:: 54y/o M admitted fro COPD exacerbation Admit to tele Start IV steroids Solumedrol 40mg Q12 Start IV fluids for hydration Oxygen as need to keep Spo2>90 Check TSH, HbA1c, Lipid panel IV azithromycin for possible bronchitis given patient has productive cough Cardiac diet Start Montelukast, h/o Asthma Monitor and replete electrolytes as needed SCD for DVT ppx
[2020-01-17] MEDS: Montelukast 10 MG Tab PO SCH (20:35)
[2020-01-17] MEDS: guaiFENesin/Dextromethorphan 100-10 MG/5 ML Soln 10 ML Cup PO PRN (20:35)
[2020-01-17] MEDS ORDERED: Aluminum Hydroxide/Magnesium Hydroxide/Simethicone Susp 30 ML Cup PO PRN (23:45)
[2020-01-17] MEDS ORDERED: Pantoprazole 40 MG in Sodium Chloride 0.9% 10 ML IV ONE (23:46)
[2020-01-18] MEDS: guaiFENesin/Dextromethorphan 100-10 MG/5 ML Soln 10 ML Cup PO PRN ×2 (00:30→16:25)
[2020-01-18] MEDS: methylPREDNISolone Sodium Succinate 40 MG/1 ML SDV IVPUSH SCH ×2 (03:14→15:32)
[2020-01-18] MEDS: Azithromycin 500 MG in Sodium Chloride 0.9% 250 ML IV SCH (03:14)
[2020-01-18] MEDS: Albuterol/Ipratropium 3.0-0.5 MG/3 ML Neb Soln NEB SCH ×3 (06:02→17:24)
[2020-01-18 06:26] LABS: HEMOGLOBIN A1C 6.5 % (4.5-6.2)
[2020-01-18] MEDS ORDERED: methylPREDNISolone Sodium Succinate 40 MG/1 ML SDV IVPUSH SCH (09:00)
[2020-01-18] MEDS: Pantoprazole 40 MG in Sodium Chloride 0.9% 10 ML IV SCH (09:05)
[2020-01-18] MEDS ORDERED: Phosphorus #1 250 MG Tab PO ONE (09:13)
--- NOTE | 2020-01-18 11:56 | PCM.PN ---
- General Info Date of Service: 01/18/20 Admission Dx/Problem (Free Text): Admission Diagnosis/Problem Admission Diagnosis/Problem Bronchospasm Subjective Update: seen at bedside, breathing better, states he gets short of breath upon walking few feet. - Review of Systems General: Denies: Fever, Weakness, Fatigue Pulmonary: Reports: Shortness of Breath, Cough, Sputum. Denies: Pleuritic Chest Pain Cardiovascular: Reports: Dyspnea on Exertion. Denies: Chest Pain, Palpitations, Orthopnea, Edema Gastrointestinal: Denies: Abdominal Pain, Constipation, Decreased Appetite Genitourinary: Denies: Dysuria, Frequency, Burning Musculoskeletal: Denies: Neck Pain, Shoulder Pain, Arm Pain Skin: Denies: Cyanosis, Jaundice, Mottled Neurological: Denies: Confusion, Dizziness, Headache - Patient Data Vitals - Most Recent: Last Vital Signs Temp 36.6 C 01/18/20 07:49 Pulse 101 H 01/18/20 07:49 Resp 20 01/18/20 07:49 BP 121/88 01/18/20 07:49 Pulse Ox 93 L 01/18/20 07:49 Weight - Most Recent: 81.601 kg I&O - Last 24 Hours: Intake & Output 01/17/20 01/18/20 01/18/20 22:59 06:59 14:59 Intake Total 600 Output Total 820 Balance -220 Lab Results Last 24 Hours: Laboratory Results - last 24 hr 01/17/20 01/17/20 01/17/20 Range/Units 15:25 15:25 15:25 WBC 12.32 H (4.0-11.0) K/uL RBC 5.35 (4.50-5.90) M/uL Hgb 15.3 (13.0-17.0) g/dL Hct 43.8 (38.0-50.0) % MCV 81.9 (80.0-98.0) fL MCH 28.6 (27.0-32.0) pg MCHC 34.9 (31.0-37.0) g/dL RDW Std Deviation 46.0 (28.0-62.0) fl RDW Coeff of Cortes 15 (11.0-15.0) % Plt Count 224 (150-400) K/uL MPV 11.40 (7.40-12.00) fL Neut % (Auto) (48.0-80.0) % Lymph % (Auto) (16.0-40.0) % Steele % (Auto) (0.0-15.0) % Eos % (Auto) (0.0-7.0) % Baso % (Auto) (0.0-1.5) % Neut # (Auto) (1.4-5.7) K/uL Lymph # (Auto) (0.6-2.4) K/uL Steele # (Auto) (0.0-0.8) K/uL Eos # (Auto) (0.0-0.7) K/uL Baso # (Auto) (0.0-0.1) K/uL Add Manual Diff YES Neutrophils % (Manual) 74 (48.0-80.0) % Band Neutrophils % 7 % Lymphocytes % (Manual) 12 L (16.0-40.0) % Monocytes % (Manual) 5 (0.0-15.0) % Eosinophils % (Manual) 1 (0.0-7.0) % Basophils % (Manual) 1 (0.0-1.5) % Nucleated RBC % /100WBC Absolute Seg Neuts 9.1 H (1.4-5.7) Band Neutrophils # 0.9 Lymphocytes # (Manual) 1.5 (0.6-2.4) Monocytes # (Manual) 0.6 (0.0-0.8) Eosinophils # (Manual) 0.1 (0.0-0.7) Basophils # (Manual) 0.1 (0.0-0.1) Nucleated RBCs # K/uL D-Dimer, Quantitative (0.0-0.50) mg/L FEU Sodium 142 (136-148) mmol/L Potassium 3.4 L (3.5-5.1) mmol/L Chloride 104 (98-107) mmol/L Carbon Dioxide 27.9 (21.0-32.0) mmol/L BUN 14 (7.0-18.0) mg/dL Creatinine 1.3 (0.8-1.3) mg/dL Est Cr Clr Drug Dosing 60.03 mL/min Estimated GFR (MDRD) > 60.0 ml/min Glucose 191 H (74-106) mg/dL Hemoglobin A1c (4.5-6.2) % Calcium 8.8 (8.5-10.1) mg/dL Phosphorus (2.6-4.7) mg/dL Magnesium (1.8-2.4) mg/dL Troponin I < 0.050 (0.000-0.056) ng/mL B-Natriuretic Peptide 49 (<100) PG/ML Triglycerides (0-200) mg/dL Cholesterol (50-200) mg/dL LDL Cholesterol, Calc (60-180) mg/dL VLDL Cholesterol (5-55) mg/dL HDL Cholesterol (40-60) mg/dL Cholesterol/HDL Ratio (3.3-6.0) TSH 3rd Generation (0.36-3.74) uIU/mL Urine Color Urine Appearance Urine pH (5.0-8.0) Ur Specific [place] (1.001-1.035) Urine Protein (NEGATIVE) mg/dL Urine Glucose (UA) (NEGATIVE) mg/dL Urine Ketones (NEGATIVE) mg/dL Urine Occult Blood (NEGATIVE) Urine Nitrite (NEGATIVE) Urine Bilirubin (NEGATIVE) Urine Urobilinogen (<2.0) EU/dL Ur Leukocyte Esterase (NEGATIVE) Urine RBC (0-2/HPF) Urine WBC (0-5/HPF) Ur Epithelial Cells (NONE-FEW) Urine Bacteria (NEGATIVE) SARS Virus RNA (PCR) (NEGATIVE) 01/17/20 01/17/20 01/18/20 Range/Units 15:25 15:34 05:20 WBC (4.0-11.0) K/uL RBC (4.50-5.90) M/uL Hgb (13.0-17.0) g/dL Hct (38.0-50.0) % MCV (80.0-98.0) fL MCH (27.0-32.0) pg MCHC (31.0-37.0) g/dL RDW Std Deviation (28.0-62.0) fl RDW Coeff of Cortes (11.0-15.0) % Plt Count (150-400) K/uL MPV (7.40-12.00) fL Neut % (Auto) (48.0-80.0) % Lymph % (Auto) (16.0-40.0) % Steele % (Auto) (0.0-15.0) % Eos % (Auto) (0.0-7.0) % Baso % (Auto) (0.0-1.5) % Neut # (Auto) (1.4-5.7) K/uL Lymph # (Auto) (0.6-2.4) K/uL Steele # (Auto) (0.0-0.8) K/uL Eos # (Auto) (0.0-0.7) K/uL Baso # (Auto) (0.0-0.1) K/uL Add Manual Diff Neutrophils % (Manual) (48.0-80.0) % Band Neutrophils % % Lymphocytes % (Manual) (16.0-40.0) % Monocytes % (Manual) (0.0-15.0) % Eosinophils % (Manual) (0.0-7.0) % Basophils % (Manual) (0.0-1.5) % Nucleated RBC % /100WBC Absolute Seg Neuts (1.4-5.7) Band Neutrophils # Lymphocytes # (Manual) (0.6-2.4) Monocytes # (Manual) (0.0-0.8) Eosinophils # (Manual) (0.0-0.7) Basophils # (Manual) (0.0-0.1) Nucleated RBCs # K/uL D-Dimer, Quantitative 0.43 (0.0-0.50) mg/L FEU Sodium (136-148) mmol/L Potassium (3.5-5.1) mmol/L Chloride (98-107) mmol/L Carbon Dioxide (21.0-32.0) mmol/L BUN (7.0-18.0) mg/dL Creatinine (0.8-1.3) mg/dL Est Cr Clr Drug Dosing mL/min Estimated GFR (MDRD) ml/min Glucose (74-106) mg/dL Hemoglobin A1c (4.5-6.2) % Calcium (8.5-10.1) mg/dL Phosphorus (2.6-4.7) mg/dL Magnesium (1.8-2.4) mg/dL Troponin I (0.000-0.056) ng/mL B-Natriuretic Peptide (<100) PG/ML Triglycerides (0-200) mg/dL Cholesterol (50-200) mg/dL LDL Cholesterol, Calc (60-180) mg/dL VLDL Cholesterol (5-55) mg/dL HDL Cholesterol (40-60) mg/dL Cholesterol/HDL Ratio (3.3-6.0) TSH 3rd Generation (0.36-3.74) uIU/mL Urine Color YELLOW Urine Appearance CLEAR Urine pH 7.0 (5.0-8.0) Ur Specific [place] 1.015 (1.001-1.035) Urine Protein NEGATIVE (NEGATIVE) mg/dL Urine Glucose (UA) NEGATIVE (NEGATIVE) mg/dL Urine Ketones NEGATIVE (NEGATIVE) mg/dL Urine Occult Blood NEGATIVE (NEGATIVE) Urine Nitrite NEGATIVE (NEGATIVE) Urine Bilirubin NEGATIVE (NEGATIVE) Urine Urobilinogen 0.2 (<2.0) EU/dL Ur Leukocyte Esterase NEGATIVE (NEGATIVE) Urine RBC 0-1 (0-2/HPF) Urine WBC 0-2 (0-5/HPF) Ur Epithelial Cells RARE (NONE-FEW) Urine Bacteria RARE (NEGATIVE) SARS Virus RNA (PCR) NEGATIVE (NEGATIVE) 01/18/20 01/18/20 01/18/20 Range/Units 05:55 05:55 05:55 WBC 11.42 H (4.0-11.0) K/uL RBC 5.12 (4.50-5.90) M/uL Hgb 14.3 (13.0-17.0) g/dL Hct 43.1 (38.0-50.0) % MCV 84.2 (80.0-98.0) fL MCH 27.9 (27.0-32.0) pg MCHC 33.2 (31.0-37.0) g/dL RDW Std Deviation 47.6 (28.0-62.0) fl RDW Coeff of Cortes 16 H (11.0-15.0) % Plt Count 230 (150-400) K/uL MPV 10.60 (7.40-12.00) fL Neut % (Auto) 88.4 H (48.0-80.0) % Lymph % (Auto) 9.8 L (16.0-40.0) % Steele % (Auto) 1.6 (0.0-15.0) % Eos % (Auto) 0.1 (0.0-7.0) % Baso % (Auto) 0.1 (0.0-1.5) % Neut # (Auto) 10.1 H (1.4-5.7) K/uL Lymph # (Auto) 1.1 (0.6-2.4) K/uL Steele # (Auto) 0.2 (0.0-0.8) K/uL Eos # (Auto) 0.0 (0.0-0.7) K/uL Baso # (Auto) 0.0 (0.0-0.1) K/uL Add Manual Diff Neutrophils % (Manual) (48.0-80.0) % Band Neutrophils % % Lymphocytes % (Manual) (16.0-40.0) % Monocytes % (Manual) (0.0-15.0) % Eosinophils % (Manual) (0.0-7.0) % Basophils % (Manual) (0.0-1.5) % Nucleated RBC % 0.0 /100WBC Absolute Seg Neuts (1.4-5.7) Band Neutrophils # Lymphocytes # (Manual) (0.6-2.4) Monocytes # (Manual) (0.0-0.8) Eosinophils # (Manual) (0.0-0.7) Basophils # (Manual) (0.0-0.1) Nucleated RBCs # 0 K/uL D-Dimer, Quantitative (0.0-0.50) mg/L FEU Sodium (136-148) mmol/L Potassium (3.5-5.1) mmol/L Chloride (98-107) mmol/L Carbon Dioxide (21.0-32.0) mmol/L BUN (7.0-18.0) mg/dL Creatinine (0.8-1.3) mg/dL Est Cr Clr Drug Dosing mL/min Estimated GFR (MDRD) ml/min Glucose (74-106) mg/dL Hemoglobin A1c 6.5 H (4.5-6.2) % Calcium (8.5-10.1) mg/dL Phosphorus 2.2 L (2.6-4.7) mg/dL Magnesium 2.2 (1.8-2.4) mg/dL Troponin I (0.000-0.056) ng/mL B-Natriuretic Peptide (<100) PG/ML Triglycerides 49 (0-200) mg/dL Cholesterol 227 H (50-200) mg/dL LDL Cholesterol, Calc 135 (60-180) mg/dL VLDL Cholesterol 9 (5-55) mg/dL HDL Cholesterol 82 H (40-60) mg/dL Cholesterol/HDL Ratio 2.8 L (3.3-6.0) TSH 3rd Generation 0.18 L (0.36-3.74) uIU/mL Urine Color Urine Appearance Urine pH (5.0-8.0) Ur Specific [place] (1.001-1.035) Urine Protein (NEGATIVE) mg/dL Urine Glucose (UA) (NEGATIVE) mg/dL Urine Ketones (NEGATIVE) mg/dL Urine Occult Blood (NEGATIVE) Urine Nitrite (NEGATIVE) Urine Bilirubin (NEGATIVE) Urine Urobilinogen (<2.0) EU/dL Ur Leukocyte Esterase (NEGATIVE) Urine RBC (0-2/HPF) Urine WBC (0-5/HPF) Ur Epithelial Cells (NONE-FEW) Urine Bacteria (NEGATIVE) SARS Virus RNA (PCR) (NEGATIVE) Med Orders - Current: Current Medications Al Hydroxide/Mg Hydroxide (Mag-Al Plus) 30 ml PO Q6H PRN PRN Reason: Heartburn Last Admin: 01/18/20 00:00 Dose: 30 ml Documented by: Albuterol/Ipratropium (Duoneb 3.0-0.5 Mg/3 Ml) 3 ml NEB Q4HRRT PRN PRN Reason: Wheezing Albuterol/Ipratropium (Duoneb 3.0-0.5 Mg/3 Ml) 3 ml NEB Q6HRRT [facility] Last Admin: 01/18/20 11:38 Dose: 3 ml Documented by: Guaifenesin/Dextromethorphan (Robitussin Dm) 10 ml PO Q4H PRN PRN Reason: Cough Last Admin: 01/18/20 00:30 Dose: 10 ml Documented by: Pantoprazole Sodium 40 mg/ (Sodium Chloride) 10 mls @ 300 mls/hr IV DAILY [facility] Last Admin: 01/18/20 09:05 Dose: 300 mls/hr Documented by: Azithromycin 500 mg/ Sodium (Chloride) 250 mls @ 250 mls/hr IV Q24H [facility] Last Admin: 01/18/20 03:14 Dose: 250 mls/hr Documented by: Methylprednisolone Sodium Succinate (Solu-Medrol) 40 mg IVPUSH Q12H [facility] Last Admin: 01/18/20 03:14 Dose: 40 mg Documented by: Montelukast Sodium (Singulair) 10 mg PO BEDTIME [facility] Last Admin: 01/17/20 20:35 Dose: 10 mg Documented by: Discontinued Medications Albuterol (Ventolin Hfa) 4 gm INH ONETIME ONE Stop: 01/17/20 15:06 Last Admin: 01/17/20 15:15 Dose: 4 puff Documented by: Albuterol/Ipratropium (Duoneb 3.0-0.5 Mg/3 Ml) 3 ml NEB Q6HRRT [facility] Albuterol/Ipratropium (Duoneb 3.0-0.5 Mg/3 Ml) 3 ml NEB Q6HRRT [facility] Last Admin: 01/18/20 00:01 Dose: 3 ml Documented by: Magnesium Sulfate 2 gm/ Sodium (Chloride) 54 mls @ 162 mls/hr IV ASDIRECTED [facility]; Protocol Magnesium Sulfate 2 gm/ Premix 50 mls @ 50 mls/hr IV ONETIME ONE Stop: 01/17/20 17:54 Last Admin: 01/17/20 17:00 Dose: 50 mls/hr Documented by: Magnesium Sulfate (Magnesium Sulfate In Water Premix) Confirm Administered Dose 50 mls @ as directed .ROUTE .STK-MED ONE Stop: 01/17/20 16:55 Last Admin: 01/17/20 17:01 Dose: Not Given Documented by: Lactated Ringer's (Ringers, Lactated) 1,000 mls @ 100 mls/hr IV ASDIRECTED [facility] Stop: 01/18/20 03:00 Last Admin: 01/17/20 19:11 Dose: 100 mls/hr Documented by: Pantoprazole Sodium 40 mg/ (Sodium Chloride) 10 mls @ 300 mls/hr IV NOW ONE Stop: 01/17/20 23:47 Last Admin: 01/18/20 00:00 Dose: 300 mls/hr Documented by: Methylprednisolone Sodium Succinate (Solu-Medrol) 125 mg IVPUSH ONETIME ONE Stop: 01/17/20 15:07 Last Admin: 01/17/20 15:15 Dose: 125 mg Documented by: Methylprednisolone Sodium Succinate (Solu-Medrol) 40 mg IVPUSH Q12H [facility] Potassium Chloride (Potassium Chloride) 40 meq PO ONETIME ONE Stop: 01/17/20 19:55 Last Admin: 01/17/20 20:35 Dose: 40 meq Documented by: Sodium Phosphate (Neutra-Phos) 250 mg PO ONETIME ONE Stop: 01/18/20 09:14 Last Admin: 01/18/20 09:25 Dose: 250 mg Documented by: - Exam Quality Assessment: No: Supplemental Oxygen General: Alert, Oriented Neck: Supple, Trachea Midline Lungs: Clear to Auscultation, Normal Respiratory Effort Cardiovascular: Regular Rate, Regular Rhythm GI/Abdominal Exam: Normal Bowel Sounds, Soft, Non-Tender Extremities: Normal Inspection, Normal Range of Motion, Non-Tender. No: Pedal Edema Sepsis Event Note - Evaluation Sepsis Screening Result: No Definite Risk - Focused Exam Vital Signs: Vital Signs Temp Pulse Resp BP Pulse Ox 01/18/20 07:49 36.6 C 101 H 20 121/88 93 L 01/18/20 04:00 36.5 C 84 18 135/80 94 L 01/18/20 00:00 36.8 C 89 18 142/85 H 93 L Date Exam was Performed: 01/18/20 Time Exam was Performed: 11:51 - Problem List & Annotations (1) Bronchitis SNOMED Code(s): 36630227 Code(s): J40 - BRONCHITIS, NOT SPECIFIED ACUTE OR CHRONIC Status: Acute Current Visit: Yes (2) COPD exacerbation SNOMED Code(s): 954738039 Code(s): J44.1 - CHRONIC OBSTRUCTIVE PULMONARY DISEASE W (ACUTE) EXACERBATION Status: Acute Current Visit: No (3) HTN (hypertension) SNOMED Code(s): 50706098 Code(s): I10 - ESSENTIAL (PRIMARY) HYPERTENSION Status: Acute Current Visit: Yes (4) Hypokalemia SNOMED Code(s): 96506105 Code(s): E87.6 - HYPOKALEMIA Status: Acute Current Visit: Yes - Problem List Review Problem List Initiated/Reviewed/Updated: Yes - My Orders Last 24 Hours: My Active Orders 01/17/20 Dinner Cardiac [Heart Healthy Diet] [DIET] 01/17/20 18:20 Telemetry Monitoring [Cardiac Monitoring] [RC] . DIRECTED 01/17/20 18:25 Ambulate [RC] ASDIRECTED Oxygen Therapy [RC] ASDIRECTED Vital Signs [RC] Q4H 01/17/20 18:26 Pulse Oximetry [RC] ASDIRECTED 01/17/20 18:28 RT Aerosol Therapy [RC] ASDIRECTED 01/17/20 18:29 Antiembolic Devices [RC] PER UNIT ROUTINE SCD [Sequential Compression Device] [OM.PC] Routine 01/17/20 18:32 Albuterol/Ipratropium [DuoNeb 3.0-0.5 MG/3 ML] 3 ml NEB Q4HRRT PRN 01/17/20 18:33 RT Aerosol Therapy [RC] ASDIRECTED 01/17/20 19:56 Dextromethorphan/guaiFENesin [Robitussin DM] 10 ml PO Q4H PRN 01/17/20 21:00 Montelukast [Singulair] 10 mg PO BEDTIME 01/17/20 23:45 Alum Hydrox/Mag Hydrox/Simeth [Mag-Al Plus] 30 ml PO Q6H PRN 01/18/20 00:52 H PYLORI STOOL ANTIGEN [MREF] Routine 01/18/20 01:00 Azithromycin [Zithromax] 500 mg Sodium Chloride 0.9% [Normal Saline (AdvBag)] 250 ml IV Q24H 01/18/20 04:00 methylPREDNISolone Sod Succ [Solu-MEDROL] 40 mg IVPUSH Q12H 01/18/20 06:00 Albuterol/Ipratropium [DuoNeb 3.0-0.5 MG/3 ML] 3 ml NEB Q6HRRT 01/18/20 09:00 Pantoprazole [ProTONIX IV] 40 mg Sodium Chloride 0.9% [Normal Saline] 10 ml IV DAILY 01/18/20 11:36 Code Status [Resuscitation Status] Routine - Plan Plan:: 54y/o M admitted fro COPD exacerbation Improving air entry, but still wheezing cont steroids Solumedrol 40mg Q12 stop IV fluids Oxygen as need to keep Spo2>90 cont azithromycin for possible bronchitis given patient has productive cough Cardiac diet cont Montelukast, h/o Asthma Monitor and replete electrolytes as needed SCD for DVT ppx TSH low, Check T4 , Lipid panel noted start low dose statin HbA1c noted, will need metformin upon dc
[2020-01-18] MEDS: Insulin Aspart 100 Units/ML 3 ML Pen SUBCUT SCH (17:21)
[2020-01-18] MEDS ORDERED: Albuterol/Ipratropium 3.0-0.5 MG/3 ML Neb Soln NEB SCH ×3 (19:53)
[2020-01-18] MEDS: Montelukast 10 MG Tab PO SCH (20:04)
[2020-01-18] MEDS ORDERED: atorvaSTATin 20 MG Tab PO SCH (21:00)
[2020-01-19] MEDS: Albuterol/Ipratropium 3.0-0.5 MG/3 ML Neb Soln NEB SCH ×2 (00:18→05:39)
[2020-01-19] MEDS: Azithromycin 500 MG in Sodium Chloride 0.9% 250 ML IV SCH (01:58)
[2020-01-19] MEDS: methylPREDNISolone Sodium Succinate 40 MG/1 ML SDV IVPUSH SCH (03:23)
[2020-01-19] MEDS: guaiFENesin/Dextromethorphan 100-10 MG/5 ML Soln 10 ML Cup PO PRN (03:36)
[2020-01-19 06:41] LABS: BLOOD UREA NITROGEN,BUN 16 mg/dL (7.0-18.0); CARBON DIOXIDE,CO2 25.9 mmol/L (21.0-32.0); CHLORIDE,CL 105 mmol/L (98-107); GLUCOSE RANDOM 153 mg/dL (74-106); POTASSIUM,K 4.1 mmol/L (3.5-5.1); SODIUM,NA 142 mmol/L (136-148)
[2020-01-19] MEDS: Insulin Aspart 100 Units/ML 3 ML Pen SUBCUT SCH (07:01)
[2020-01-19] MEDS: Pantoprazole 40 MG in Sodium Chloride 0.9% 10 ML IV SCH (08:50)
--- NOTE | 2020-01-19 09:46 | PCM.DCSUM1 ---
Discharge Summary - Discharge Data Discharge Date: 01/19/20 Discharge Disposition: Home, Self-Care 01 Condition: Good - Referral to Home Health Primary Care Physician: PCP None - Patient Summary/Data Hospital Course: 54-year-old male with history of COPD/Asthma who was admitted for COPD exacerbation. Patient presented with increasing shortness of breath and had been in the ER three times this month. Patient reports he had been only taking albuterol inhaler. On admission his lab work was reassuring. CXR was unremarkable. He was treated with IV solumedrol, duonebs and azithromycin. His symptoms improved and today he is requesting discharge. HE was discharge on a short course of prednisone and Azithromycin as well as Advair. He is to follow up with DR. Griffith. - Patient Instructions Diet: Diabetic Diet - Discharge Plan *PRESCRIPTION DRUG MONITORING PROGRAM REVIEWED*: Not Applicable *COPY OF PRESCRIPTION DRUG MONITORING REPORT IN PATIENT ELIECER: Not Applicable Prescriptions/Med Rec: Fluticasone/Salmeterol [Advair 250-50] 1 puff INH BID #1 diskus Azithromycin 250 mg PO DAILY #4 tablet atorvaSTATin [Lipitor] 20 mg PO BEDTIME #30 tablet metFORMIN HCl [Metformin HCl ER] 500 mg PO DAILY #30 tab.er.24h predniSONE [Prednisone] 50 mg PO DAILY #4 tablet Home Medications: Home Meds Albuterol [Ventolin HFA] 1 puff INH Q4H #1 inhaler 11/01/19 [Rx] Ipratropium [Atrovent] 0.5 mg .XX BID #30 neb 12/14/19 [Rx] atorvaSTATin [Lipitor] 20 mg PO BEDTIME #30 tablet 01/18/20 [Rx] metFORMIN HCl [Metformin HCl ER] 500 mg PO DAILY #30 tab.er.24h 01/18/20 [Rx] Azithromycin 250 mg PO DAILY #4 tablet 01/19/20 [Rx] Fluticasone/Salmeterol [Advair 250-50] 1 puff INH BID #1 diskus 01/19/20 [Rx] predniSONE [Prednisone] 50 mg PO DAILY #4 tablet 01/19/20 [Rx] Patient Handouts: Chronic Obstructive Pulmonary Disease Exacerbation, [id number], Empagliflozin; Metformin oral tablets, Bronchospasm, Adult, [id number], Atorvastatin tablets Referrals: John Griffith MD [Ordering Only Provider] - 01/26/20 8:00 am - Discharge Summary/Plan Comment DC Time >30 min.: No - Patient Data Vitals - Most Recent: Last Vital Signs Temp 37.1 C 01/19/20 07:05 Pulse 82 01/19/20 07:05 Resp 18 01/19/20 07:05 BP 121/81 01/19/20 07:05 Pulse Ox 95 01/19/20 07:05 Weight - Most Recent: 81.601 kg I&O - Last 24 hours: Intake & Output 01/18/20 01/19/20 01/19/20 22:59 06:59 14:59 Intake Total 820 590 10 Output Total 0 Balance 820 590 10 Lab Results - Last 24 hrs: Laboratory Results - last 24 hr 01/18/20 01/18/20 01/19/20 Range/Units 05:55 17:09 06:05 WBC 20.23 H (4.0-11.0) K/uL RBC 5.28 (4.50-5.90) M/uL Hgb 15.1 (13.0-17.0) g/dL Hct 44.8 (38.0-50.0) % MCV 84.8 (80.0-98.0) fL MCH 28.6 (27.0-32.0) pg MCHC 33.7 (31.0-37.0) g/dL RDW Std Deviation 49.3 (28.0-62.0) fl RDW Coeff of Cortes 16 H (11.0-15.0) % Plt Count 263 (150-400) K/uL MPV 11.00 (7.40-12.00) fL Add Manual Diff YES Neutrophils % (Manual) 89 H (48.0-80.0) % Lymphocytes % (Manual) 6 L (16.0-40.0) % Monocytes % (Manual) 5 (0.0-15.0) % Nucleated RBC % 0.0 /100WBC Absolute Seg Neuts 18.0 H (1.4-5.7) Lymphocytes # (Manual) 1.2 (0.6-2.4) Monocytes # (Manual) 1.0 H (0.0-0.8) Nucleated RBCs # 0 K/uL Sodium (136-148) mmol/L Potassium (3.5-5.1) mmol/L Chloride (98-107) mmol/L Carbon Dioxide (21.0-32.0) mmol/L BUN (7.0-18.0) mg/dL Creatinine (0.8-1.3) mg/dL Est Cr Clr Drug Dosing mL/min Estimated GFR (MDRD) ml/min Glucose (74-106) mg/dL POC Glucose 191 H (60-110) mg/dL Calcium (8.5-10.1) mg/dL Phosphorus (2.6-4.7) mg/dL Magnesium (1.8-2.4) mg/dL Free T4 0.70 L (0.76-1.46) ng/dL 01/19/20 01/19/20 Range/Units 06:05 06:54 WBC (4.0-11.0) K/uL RBC (4.50-5.90) M/uL Hgb (13.0-17.0) g/dL Hct (38.0-50.0) % MCV (80.0-98.0) fL MCH (27.0-32.0) pg MCHC (31.0-37.0) g/dL RDW Std Deviation (28.0-62.0) fl RDW Coeff of Cortes (11.0-15.0) % Plt Count (150-400) K/uL MPV (7.40-12.00) fL Add Manual Diff Neutrophils % (Manual) (48.0-80.0) % Lymphocytes % (Manual) (16.0-40.0) % Monocytes % (Manual) (0.0-15.0) % Nucleated RBC % /100WBC Absolute Seg Neuts (1.4-5.7) Lymphocytes # (Manual) (0.6-2.4) Monocytes # (Manual) (0.0-0.8) Nucleated RBCs # K/uL Sodium 142 (136-148) mmol/L Potassium 4.1 (3.5-5.1) mmol/L Chloride 105 (98-107) mmol/L Carbon Dioxide 25.9 (21.0-32.0) mmol/L BUN 16 (7.0-18.0) mg/dL Creatinine 1.2 (0.8-1.3) mg/dL Est Cr Clr Drug Dosing 62.77 mL/min Estimated GFR (MDRD) > 60.0 ml/min Glucose 153 H (74-106) mg/dL POC Glucose 144 H (60-110) mg/dL Calcium 8.3 L (8.5-10.1) mg/dL Phosphorus 3.2 (2.6-4.7) mg/dL Magnesium 2.2 (1.8-2.4) mg/dL Free T4 (0.76-1.46) ng/dL Med Orders - Current: Current Medications Al Hydroxide/Mg Hydroxide (Mag-Al Plus) 30 ml PO Q6H PRN PRN Reason: Heartburn Last Admin: 01/18/20 00:00 Dose: 30 ml Documented by: Albuterol/Ipratropium (Duoneb 3.0-0.5 Mg/3 Ml) 3 ml NEB Q4HRRT PRN PRN Reason: Wheezing Albuterol/Ipratropium (Duoneb 3.0-0.5 Mg/3 Ml) 3 ml NEB Q6HRRT [facility] Last Admin: 01/19/20 05:39 Dose: 3 ml Documented by: Atorvastatin Calcium (Lipitor) 20 mg PO BEDTIME [facility] Last Admin: 01/18/20 20:03 Dose: 20 mg Documented by: Guaifenesin/Dextromethorphan (Robitussin Dm) 10 ml PO Q4H PRN PRN Reason: Cough Last Admin: 01/19/20 03:36 Dose: 10 ml Documented by: Pantoprazole Sodium 40 mg/ (Sodium Chloride) 10 mls @ 300 mls/hr IV DAILY [facility] Last Admin: 01/19/20 08:50 Dose: 300 mls/hr Documented by: Azithromycin 500 mg/ Sodium (Chloride) 250 mls @ 250 mls/hr IV Q24H [facility] Last Admin: 01/19/20 01:58 Dose: 250 mls/hr Documented by: Insulin Aspart (Novolog) 0 unit SUBCUT TIDAC [facility]; Protocol Last Admin: 01/19/20 07:01 Dose: Not Given Documented by: Methylprednisolone Sodium Succinate (Solu-Medrol) 40 mg IVPUSH Q12H [facility] Last Admin: 01/19/20 03:23 Dose: 40 mg Documented by: Montelukast Sodium (Singulair) 10 mg PO BEDTIME [facility] Last Admin: 01/18/20 20:04 Dose: 10 mg Documented by: Discontinued Medications Albuterol (Ventolin Hfa) 4 gm INH ONETIME ONE Stop: 01/17/20 15:06 Last Admin: 01/17/20 15:15 Dose: 4 puff Documented by: Albuterol/Ipratropium (Duoneb 3.0-0.5 Mg/3 Ml) 3 ml NEB Q6HRRT KVNG Albuterol/Ipratropium (Duoneb 3.0-0.5 Mg/3 Ml) 3 ml NEB Q6HRRT KVNG Last Admin: 01/18/20 00:01 Dose: 3 ml Documented by: Magnesium Sulfate 2 gm/ Sodium (Chloride) 54 mls @ 162 mls/hr IV ASDIRECTED [facility]; Protocol Magnesium Sulfate 2 gm/ Premix 50 mls @ 50 mls/hr IV ONETIME ONE Stop: 01/17/20 17:54 Last Admin: 01/17/20 17:00 Dose: 50 mls/hr Documented by: Magnesium Sulfate (Magnesium Sulfate In Water Premix) Confirm Administered Dose 50 mls @ as directed .ROUTE .STK-MED ONE Stop: 01/17/20 16:55 Last Admin: 01/17/20 17:01 Dose: Not Given Documented by: Lactated Ringer's (Ringers, Lactated) 1,000 mls @ 100 mls/hr IV ASDIRECTED [facility] Stop: 01/18/20 03:00 Last Admin: 01/17/20 19:11 Dose: 100 mls/hr Documented by: Pantoprazole Sodium 40 mg/ (Sodium Chloride) 10 mls @ 300 mls/hr IV NOW ONE Stop: 01/17/20 23:47 Last Admin: 01/18/20 00:00 Dose: 300 mls/hr Documented by: Methylprednisolone Sodium Succinate (Solu-Medrol) 125 mg IVPUSH ONETIME ONE Stop: 01/17/20 15:07 Last Admin: 01/17/20 15:15 Dose: 125 mg Documented by: Methylprednisolone Sodium Succinate (Solu-Medrol) 40 mg IVPUSH Q12H [facility] Potassium Chloride (Potassium Chloride) 40 meq PO ONETIME ONE Stop: 01/17/20 19:55 Last Admin: 01/17/20 20:35 Dose: 40 meq Documented by: Sodium Phosphate (Neutra-Phos) 250 mg PO ONETIME ONE Stop: 01/18/20 09:14 Last Admin: 01/18/20 09:25 Dose: 250 mg Documented by:
== END 2020-01-19 11:00 | disposition home or self-care (01) ==
LOC: MW.ED 14:52 → MW.MS 16:55
PROVIDERS: ADMIT Student in an Organized Health Care Education/Training Program; ATTEND Student in an Organized Health Care Education/Training Program
DX: J44.1 Chronic obstructive pulmonary disease with (acute) exacerbation (principal); I10 Essential (primary) hypertension; E87.6 Hypokalemia; Z20.828 Contact with and (suspected) exposure to other viral communicable diseases; Z79.51 Long term (current) use of inhaled steroids; Z79.899 Other long term (current) drug therapy; Z87.891 Personal history of nicotine dependence
CPT/HCPCS: 36415; 71045; 80048; 80061; 81001; 82962; 83036; 83735; 83880; 84100; 84439; 84443; 84484; 85025; 85379; 87635; 93005; 94640; 96365; 96367; 96375; 96376; 99285; A9270; C9113; G0378; J0456; J1815; J2920; J2930; J3475; J7050; J7120; 99283; J7620-GY; U0002

== ENCOUNTER 2020-04-12 20:38 | Emergency (ER) | payer OTHER ==
[2020-04-12] MEDS ORDERED: Dexamethasone 10 MG/ML SDV IM ONE (22:45)
[2020-04-12] MEDS ORDERED: Albuterol/Ipratropium 3.0-0.5 MG/3 ML Neb Soln NEB ONE (22:46)
[2020-04-12] MEDS ORDERED: Cetirizine 10 MG Tab PO ONE (23:34)
--- NOTE | 2020-04-12 23:38 | EDM.PDOC ---
ED [facility] GENERAL MEDICAL PROBLEM - General Chief Complaint: Respiratory Problem Stated Complaint: ASTHMA Time Seen by Provider: 04/12/20 21:09 - History of Present Illness INITIAL COMMENTS - FREE TEXT/NARRATIVE: HISTORY AND PHYSICAL: History of present illness: This 54-year-old gentleman with a past medical history of asthma presents emergency department complaining of shortness of breath that is been gradually worsening over the last couple days. He has had to use his rescue inhaler every 2 hours and is not responding to his DuoNeb. He has a follow-up appointment with pulmonary critical care in a couple of days and is concerned because he is having significant shortness of breath. He rates it as moderate to severe. Denies any fever. No cough or sputum production. No chest pain. He also has a rash on bilateral arms that looks like hives it is slightly gotten worse. No other associated signs or symptoms. No other modifying, aggravating or alleviating factors. Review of systems: A 10-point review of systems, other than pertinent positives and negatives as stated per HPI, is otherwise negative. Past medical history: As per history of present illness and as reviewed below otherwise noncontributory. Surgical history: As per history of present illness and as reviewed below otherwise noncontributory. Social history: No reported history of drug or alcohol abuse. Family history: As per history of present illness and as reviewed below otherwise noncontributory. Physical exam: VITAL SIGNS: Reviewed. GENERAL: Appears to be mildly short of breath. No clipped speech. Prolonged expiratory phase is noted. No tripoding HEAD: No signs of head trauma. EYES: Pupils are equal. Extraocular motions intact. EARS: Hearing grossly intact. MOUTH: Oropharynx is normal. NECK: No adenopathy, no JVD. CHEST: Bilateral wheezing. No accessory muscle use. Prolonged expiratory phase. No rhonchi. CARDIAC: Regular rate and rhythm. Normal S1 and S2, without murmurs, gallops, or rubs. VASCULAR: Peripheral pulses normal and equal in all extremities. ABDOMEN: Soft, without detectable tenderness. No sign of distention. No rebound or guarding, and no masses palpated. MUSCULOSKELETAL: Good range of motion of all major joints. Extremities without clubbing, cyanosis or edema. NEUROLOGIC EXAM: Alert and oriented x 3. No focal sensory or motor deficits. Speech normal. Follows commands. PSYCHIATRIC: Mood normal. SKIN: Hives on bilateral upper extremities Initial Differential Diagnosis & Plan: Asthma: Differential diagnosis includes asthma, chronic obstructive pulmonary disease, hypoxia, bronchitis, influenza, influenza-like illness, pneumonia I suspect this is asthma. He does not have high risk features for anaphylaxis. There is no angioedema. No fever. No history of chronic bronchitis or bronchitis. Doubt influenza or pneumonia. Plan is to give steroids, DuoNeb treatment, and reevaluate. Definitive disposition and diagnosis as appropriate pending reevaluation and review of above. - Related Data Allergies Allergy/AdvReac Type Severity Reaction Status Date / Time No Known Allergies Allergy Verified 04/12/20 21:20 Home Meds: Home Meds Albuterol [Ventolin HFA] 1 puff INH Q4H #1 inhaler 11/01/19 [Rx] Ipratropium [Atrovent] 0.5 mg .XX BID #30 neb 12/14/19 [Rx] Fluticasone/Salmeterol [Advair 250-50] 1 puff INH BID #1 diskus 01/19/20 [Rx] Albuterol/Ipratropium [DuoNeb 3.0-0.5 MG/3 ML] 1 dose INH Q4H PRN 04/12/20 [History] Cetirizine HCl [Zyrtec] 10 mg PO BID 14 Days #40 capsule 04/12/20 [Rx] EPINEPHrine [Epipen] 0.3 mg IM ONETIME #2 ml 04/12/20 [Rx] metFORMIN HCl [Metformin HCl ER] 500 mg PO BID 04/12/20 [History] predniSONE [Prednisone] 50 mg PO DAILY 5 Days #5 tablet 04/12/20 [Rx] Past Medical History HEENT History: Reports: None Cardiovascular History: Reports: None Respiratory History: Reports: Asthma, COPD Gastrointestinal History: Reports: None Genitourinary History: Reports: None Musculoskeletal History: Reports: None Neurological History: Reports: None Psychiatric History: Reports: None Endocrine/Metabolic History: Reports: None Hematologic History: Reports: None Immunologic History: Reports: None Oncologic (Cancer) History: Reports: None Dermatologic History: Reports: None - Infectious Disease History Infectious Disease History: Reports: Chicken Pox - Past Surgical History Head Surgeries/Procedures: Reports: None HEENT Surgical History: Reports: None Cardiovascular Surgical History: Reports: None Respiratory Surgical History: Reports: None GI Surgical History: Reports: None Male Surgical History: Reports: None Endocrine Surgical History: Reports: None Neurological Surgical History: Reports: None Musculoskeletal Surgical History: Reports: None Oncologic Surgical History: Reports: None Dermatological Surgical History: Reports: None Social & Family History - Family History Family Medical History: Noncontributory HEENT: Reports: None OBGYN: Reports: Oncologic: Reports: Leukemia - Tobacco Use Smoking Status *Q: Former Smoker Used Tobacco, but Quit: Yes Month/Year Tobacco Last Used: 4 years ago - Caffeine Use Caffeine Use: Reports: Coffee, Energy Drinks, Soda, Tea - Recreational Drug Use Recreational Drug Use: No ED ROS GENERAL - Review of Systems Review Of Systems: See Below (noted) ED EXAM, GENERAL - Physical Exam Exam: See Below (noted) Course - Vital Signs Text/Narrative:: Feeling much better after treatment. I will give him some Zyrtec prior to going home. My diagnostic impression: 1. Acute asthma exacerbation 2. Hives Last Recorded V/S: Last Vital Signs Temp 98 F 04/12/20 21:17 Pulse 114 H 04/12/20 21:17 Resp 20 04/12/20 21:17 BP 121/70 04/12/20 21:17 Pulse Ox 96 04/12/20 21:17 - Orders/Labs/Meds Orders: Active Orders 24 hr Category Date Time Status RT Aerosol Therapy [RC] ASDIRECTED Care 04/12/20 22:46 Active Meds: Medications Discontinued Medications Generic Name Dose Route Start Last Admin Trade Name Chaoq PRN Reason Stop Dose Admin Albuterol/Ipratropium 3 ml 04/12/20 22:46 04/12/20 22:56 Duoneb 3.0-0.5 Mg/3 Ml NEB 04/12/20 22:47 3 ml ONETIME ONE Administration Dexamethasone 10 mg 04/12/20 22:45 04/12/20 22:56 Dexamethasone IM 04/12/20 22:46 10 mg ONETIME ONE Administration Departure - Departure Time of Disposition: 23:35 Disposition: Home, Self-Care 01 Clinical Impression: Acute bronchospasm, Exacerbation of asthma, Urticaria - Discharge Information *PRESCRIPTION DRUG MONITORING PROGRAM REVIEWED*: Not Applicable *COPY OF PRESCRIPTION DRUG MONITORING REPORT IN PATIENT ELIECER: Not Applicable Instructions: Asthma, Adult, How to Use a Dry Powder Inhaler, [id number], Hives, [id number] Referrals: John Griffith MD [Primary Care Provider] - Additional Instructions: The following information is given to patients seen in the emergency department who are being discharged to home. This information is to outline your options for follow-up care. We provide all patients seen in our emergency department with a follow-up referral. The need for follow-up, as well as the timing and circumstances, are variable depending upon the specifics of your emergency department visit. If you don't have a primary care physician on staff, we will provide you with a referral. We always advise you to contact your personal physician following an emergency department visit to inform them of the circumstance of the visit and for follow-up with them and/or the need for any referrals to a consulting specialist. The emergency department will also refer you to a specialist when appropriate. This referral assures that you have the opportunity for follow-up care with a specialist. All of these measure are taken in an effort to provide you with optimal care, which includes your follow-up. Thank you for coming to the [facility] urgency department for your care today. It was Dr. Mullins's pleasure to take care of you. Please follow-up with your doctor and make sure you go to your pulmonary appointment that is out of town. Return for worsening shortness of breath or any other concerns. Please take Zyrtec 10 mg twice a day until your hives go away. Please take the prednisone as prescribed. I have also given you an EpiPen for rescue for severe shortness of breath, hives or signs of severe allergic reaction. Under all circumstances we always encourage you to contact your private physician who remains a resource for coordinating your care. When calling for follow-up care, please make the office aware that this follow-up is from your recent emergency room visit. If for any reason you are refused follow-up, please contact the [facility] Emergency Department at and asked to speak to the emergency department charge nurse. Sepsis Event Note (ED) - Evaluation Sepsis Screening Result: No Definite Risk - Focused Exam Vital Signs: Vital Signs Temp Pulse Resp BP Pulse Ox 04/12/20 21:17 98 F 114 H 20 121/70 96 - My Orders Last 24 Hours: My Active Orders 04/12/20 22:46 RT Aerosol Therapy [RC] ASDIRECTED - Assessment/Plan Last 24 Hours: My Active Orders 04/12/20 22:46 RT Aerosol Therapy [RC] ASDIRECTED
== END 2020-04-12 23:45 | disposition home or self-care (01) ==
LOC: MW.ED 20:38
DX: J45.901 Unspecified asthma with (acute) exacerbation (principal); L50.9 Urticaria, unspecified; Z87.891 Personal history of nicotine dependence; Z79.899 Other long term (current) drug therapy
CPT/HCPCS: 96372; 99284; A9270; J1100; 99283; J7620-GY

== ENCOUNTER 2020-04-15 03:31 | Observation (INO) | payer OTHER ==
[2020-04-15] MEDS ORDERED: EPINEPHrine 1 MG/ML SDV ONE (03:41)
[2020-04-15] MEDS ORDERED: diphenhydrAMINE 50 MG/ML SDV IVPUSH ONE ×2 (03:41→04:34)
[2020-04-15] MEDS ORDERED: diphenhydrAMINE 50 MG/ML SDV ONE ×2 (03:41→04:28)
[2020-04-15] MEDS ORDERED: EPINEPHrine 1 MG/ML SDV IM ONE ×2 (03:41→04:41)
[2020-04-15] MEDS ORDERED: Sodium Chloride 0.9% 1,000 ML IV ONE (03:42)
--- NOTE | 2020-04-15 03:57 | EDM.PDOC ---
ED [facility] GENERAL MEDICAL PROBLEM - General Chief Complaint: Allergic Reaction Stated Complaint: ALLERGIC REACTION Time Seen by Provider: 04/15/20 03:41 - History of Present Illness INITIAL COMMENTS - FREE TEXT/NARRATIVE: HISTORY AND PHYSICAL: History of present illness: 54-year-old gentleman who presents emergency department with significant hives, swelling of the lips and face, mild shortness of breath, and difficulty swallowi ng. Does not know the inciting agent. Has been thinking hard about the medications, food, and environmental factors that may be giving him urticaria today is much much worse and he returns emergency department wishing that he would have picked up the EpiPen and antihistamines I prescribed earlier. Patient reports that he is unsure of what he could be allergic to. He denies any GI symptoms, denies any vascular symptoms, and does not have wheezing. No other associated signs or symptoms. No other modifying, aggravating or alleviating factors. Review of systems: A 10-point review of systems, other than pertinent positives and negatives as stated per HPI, is otherwise negative. Past medical history: As per history of present illness and as reviewed below otherwise noncontributory. Surgical history: As per history of present illness and as reviewed below otherwise noncontributory. Social history: No reported history of drug or alcohol abuse. Family history: As per history of present illness and as reviewed below otherwise noncontributory. Physical exam: VITAL SIGNS: Reviewed. GENERAL: Mild to moderate distress with obvious swelling of the face, lips, hands and hives and urticaria in the visible skin areas. HEAD: No signs of head trauma. EYES: Pupils are equal. Extraocular motions intact. EARS: Hearing grossly intact. MOUTH: Swollen lips and tongue. Some swelling in the oropharynx. Change in voice compared to yesterday. NECK: No adenopathy, no JVD. CHEST: Chest with clear breath sounds bilaterally. No wheezes, rales, or rhonchi. CARDIAC: Regular rate and rhythm. Normal S1 and S2, without murmurs, gallops, or rubs. VASCULAR: Peripheral pulses normal and equal in all extremities. ABDOMEN: Soft, without detectable tenderness. No sign of distention. No rebound or guarding, and no masses palpated. MUSCULOSKELETAL: Good range of motion of all major joints. Extremities without clubbing, cyanosis or edema. NEUROLOGIC EXAM: Alert and oriented x 3. No focal sensory or motor deficits. Follows commands. PSYCHIATRIC: Mood normal. SKIN: Urticaria throughout all extremities. Initial Differential Diagnosis & Plan: Anaphylaxis, allergic reaction, urticaria, angioedema from hereditary or other causes Epinephrine 0.5 mg IM, IV fluids, antihistamines, reevaluate. Definitive disposition and diagnosis as appropriate pending reevaluation and review of above. - Related Data Allergies Allergy/AdvReac Type Severity Reaction Status Date / Time No Known Allergies Allergy Verified 04/15/20 03:42 Home Meds: Home Meds Albuterol [Ventolin HFA] 1 puff INH Q4H #1 inhaler 11/01/19 [Rx] Ipratropium [Atrovent] 0.5 mg .XX BID #30 neb 12/14/19 [Rx] Fluticasone/Salmeterol [Advair 250-50] 1 puff INH BID #1 diskus 01/19/20 [Rx] Albuterol/Ipratropium [DuoNeb 3.0-0.5 MG/3 ML] 1 dose INH Q4H PRN 04/12/20 [History] Cetirizine HCl [Zyrtec] 10 mg PO BID 14 Days #40 capsule 04/12/20 [Rx] EPINEPHrine [Epipen] 0.3 mg IM ONETIME #2 ml 04/12/20 [Rx] metFORMIN HCl [Metformin HCl ER] 500 mg PO BID 04/12/20 [History] predniSONE [Prednisone] 50 mg PO DAILY 5 Days #5 tablet 04/12/20 [Rx] Past Medical History HEENT History: Reports: None Cardiovascular History: Reports: None Respiratory History: Reports: Asthma, COPD Gastrointestinal History: Reports: None Genitourinary History: Reports: None Musculoskeletal History: Reports: None Neurological History: Reports: None Psychiatric History: Reports: None Endocrine/Metabolic History: Reports: None Hematologic History: Reports: None Immunologic History: Reports: None Oncologic (Cancer) History: Reports: None Dermatologic History: Reports: None - Infectious Disease History Infectious Disease History: Reports: None - Past Surgical History Head Surgeries/Procedures: Reports: None HEENT Surgical History: Reports: None Cardiovascular Surgical History: Reports: None Respiratory Surgical History: Reports: None GI Surgical History: Reports: None Male Surgical History: Reports: None Endocrine Surgical History: Reports: None Neurological Surgical History: Reports: None Musculoskeletal Surgical History: Reports: None Oncologic Surgical History: Reports: None Dermatological Surgical History: Reports: None Social & Family History - Family History Family Medical History: Noncontributory HEENT: Reports: None OBGYN: Reports: Oncologic: Reports: Leukemia - Tobacco Use Smoking Status *Q: Former Smoker Used Tobacco, but Quit: Yes Month/Year Tobacco Last Used: 2015 - Caffeine Use Caffeine Use: Reports: Coffee, Energy Drinks, Soda, Tea - Recreational Drug Use Recreational Drug Use: No ED ROS ALLERGIC REACTION - Review of Systems Review Of Systems: See Below (noted) ED EXAM GENERAL NO PERIP PULSE - Physical Exam Exam: See Below (noted) ED Add Procedures - Additional/Other Procedure(s) Procedure(s) (Free Text): Critical Care Note: The patient presented in critical status due to anaphylactic reaction requiring epinephrine The patient required rapid exam, decision making, and frequent re-evaluations during their time in the Emergency Department. Total Critical Care time exclusive of all other billable procedure time provided by myself 47 minutes EKG INTERPRETATION EKG Interpretation Comments: 12 lead EKG interpretation Obtained: April 15, 2020 3:50 AM Rhythm: Sinus Rate: 80 [place]: Left anterior fascicular block Intervals: Normal ST/T Segments: Nonspecific T wave abnormality Interpretation: This rhythm with left anterior fascicular block and nonspecific T wave changes Course - Vital Signs Last Recorded V/S: Last Vital Signs Temp 97.6 F 04/15/20 06:20 Pulse 79 04/15/20 06:20 Resp 20 04/15/20 06:20 BP 125/93 H 04/15/20 06:20 Pulse Ox 98 04/15/20 06:20 - Orders/Labs/Meds Orders: Active Orders 24 hr Category Date Time Status Patient Status [ADT] Routine ADT 04/15/20 04:46 Active EKG 12 Lead [EKG Documentation Completion] [RC] STAT Care 04/15/20 03:42 Active Medication Orders Influenza Virus Vaccine (Pharmacy To Dose - Influenza Vaccine) 1 each IM ONETIME ONE Stop: 04/15/20 06:49 Labs: Laboratory Tests 04/15/20 04/15/20 Range/Units 03:45 03:45 WBC 9.54 (4.0-11.0) K/uL RBC 5.26 (4.50-5.90) M/uL Hgb 15.4 (13.0-17.0) g/dL Hct 46.3 (38.0-50.0) % MCV 88.0 (80.0-98.0) fL MCH 29.3 (27.0-32.0) pg MCHC 33.3 (31.0-37.0) g/dL RDW Std Deviation 49.8 (28.0-62.0) fl RDW Coeff of Cortes 16 H (11.0-15.0) % Plt Count 246 (150-400) K/uL MPV 10.70 (7.40-12.00) fL Add Manual Diff YES Neutrophils % (Manual) 60 (48.0-80.0) % Lymphocytes % (Manual) 34 (16.0-40.0) % Monocytes % (Manual) 5 (0.0-15.0) % Eosinophils % (Manual) 1 (0.0-7.0) % Nucleated RBC % 0.0 /100WBC Absolute Seg Neuts 5.7 (1.4-5.7) Lymphocytes # (Manual) 3.2 H (0.6-2.4) Monocytes # (Manual) 0.5 (0.0-0.8) Eosinophils # (Manual) 0.1 (0.0-0.7) Nucleated RBCs # 0 K/uL Sodium 141 (136-148) mmol/L Potassium 3.6 (3.5-5.1) mmol/L Chloride 105 (98-107) mmol/L Carbon Dioxide 26.4 (21.0-32.0) mmol/L BUN 21 H (7.0-18.0) mg/dL Creatinine 1.8 H (0.8-1.3) mg/dL Est Cr Clr Drug Dosing 43.35 mL/min Estimated GFR (MDRD) 47.7 ml/min Glucose 169 H (74-106) mg/dL Calcium 7.8 L (8.5-10.1) mg/dL Troponin I < 0.050 (0.000-0.056) ng/mL Meds: Medications Generic Name Dose Route Start Last Admin Trade Name Freq PRN Reason Stop Dose Admin Influenza Virus Vaccine 1 each 04/15/20 06:48 Pharmacy To Dose - Influenza Vaccine IM 04/15/20 06:49 ONETIME ONE Discontinued Medications Generic Name Dose Route Start Last Admin Trade Name Freq PRN Reason Stop Dose Admin Diphenhydramine HCl 50 mg 04/15/20 03:41 04/15/20 03:46 Benadryl IVPUSH 04/15/20 03:42 50 mg ONETIME ONE Administration Diphenhydramine HCl Confirm 04/15/20 03:41 04/15/20 03:48 Benadryl Administered 04/15/20 03:42 Not Given Dose 50 mg .ROUTE .STK-MED ONE Diphenhydramine HCl Confirm 04/15/20 04:28 04/15/20 04:35 Benadryl Administered 04/15/20 04:29 Not Given Dose 50 mg .ROUTE .STK-MED ONE Diphenhydramine HCl 25 mg 04/15/20 04:34 04/15/20 04:35 Benadryl IVPUSH 04/15/20 04:35 25 mg ONETIME ONE Administration Epinephrine HCl 0.5 mg 04/15/20 03:41 04/15/20 03:45 Adrenalin IM 04/15/20 03:42 0.5 mg ONETIME ONE Administration Epinephrine HCl Confirm 04/15/20 03:41 04/15/20 03:48 Adrenalin Administered 04/15/20 03:42 Not Given Dose 1 mg .ROUTE .STK-MED ONE Epinephrine HCl 0.5 mg 04/15/20 04:41 04/15/20 04:53 Adrenalin IM 04/15/20 04:42 0.5 mg ONETIME ONE Administration Sodium Chloride 1,000 mls @ 2,000 mls/hr 04/15/20 03:42 04/15/20 03:47 Normal Saline IV 04/15/20 04:11 2,000 mls/hr .Bolus ONE Administration Methylprednisolone Sodium Succinate 125 mg 04/15/20 04:40 04/15/20 04:53 Solu-Medrol IVPUSH 04/15/20 04:41 125 mg ONETIME ONE Administration Departure - Departure Time of Disposition: 07:03 Disposition: Refer to Observation Clinical Impression: Anaphylactic reaction - Discharge Information *PRESCRIPTION DRUG MONITORING PROGRAM REVIEWED*: Not Applicable *COPY OF PRESCRIPTION DRUG MONITORING REPORT IN PATIENT ELIECER: Not Applicable Sepsis Event Note (ED) - Evaluation Sepsis Screening Result: No Definite Risk - Focused Exam Vital Signs: Vital Signs Temp Pulse Resp BP Pulse Ox 04/15/20 04:45 75 18 121/89 98 04/15/20 03:39 96.9 F 91 18 135/75 97 - My Orders Last 24 Hours: My Active Orders 04/15/20 03:42 EKG 12 Lead [EKG Documentation Completion] [RC] STAT 04/15/20 04:46 Patient Status [ADT] Routine - Assessment/Plan Last 24 Hours: My Active Orders 04/15/20 03:42 EKG 12 Lead [EKG Documentation Completion] [RC] STAT 04/15/20 04:46 Patient Status [ADT] Routine
[2020-04-15 04:18] LABS: BLOOD UREA NITROGEN,BUN 21 mg/dL (7.0-18.0); CARBON DIOXIDE,CO2 26.4 mmol/L (21.0-32.0); CHLORIDE,CL 105 mmol/L (98-107); GLUCOSE RANDOM 169 mg/dL (74-106); POTASSIUM,K 3.6 mmol/L (3.5-5.1); SODIUM,NA 141 mmol/L (136-148)
--- NOTE | 2020-04-15 04:34 | CR ---
Indication: Atypical chest pain Technique: Chest 1 view Comparison: Chest x-ray 01/17/2020 Findings/Impression: Cardiovascular and mediastinum: Normal heart size with mild aortic tortuosity. Lungs and pleural space: Lungs are clear. No sign of infiltrate or mass. No sign of pleural effusion. No pneumothorax. Bones and soft tissues: No acute findings. Dictated by Bertram Ramsey MD @ Apr 15 2020 4:31AM Signed by Dr. Bertram Ramsey @ Apr 15 2020 4:32AM
[2020-04-15] MEDS ORDERED: methylPREDNISolone Sodium Succinate 125 MG/2 ML SDV IVPUSH ONE (04:40)
[2020-04-15] MEDS ORDERED: Ondansetron 4 MG/2 ML SDV IVPUSH PRN (07:49)
[2020-04-15] MEDS ORDERED: Sodium Chloride 0.9% 2.5 ML Syringe FLUSH PRN (07:49)
[2020-04-15] MEDS ORDERED: Acetaminophen 325 MG Tab PO PRN (07:49)
[2020-04-15] MEDS ORDERED: diphenhydrAMINE 50 MG/ML SDV IVPUSH PRN (07:52)
[2020-04-15] MEDS ORDERED: Albuterol/Ipratropium 3.0-0.5 MG/3 ML Neb Soln INH PRN (07:53)
[2020-04-15] MEDS ORDERED: EPINEPHrine 1 MG/ML SDV IM PRN (07:54)
--- NOTE | 2020-04-15 07:56 | PCM.HP.2 ---
H&P History of Present Illness - General Date of Service: 04/15/20 Admit Problem/Dx: Admission Diagnosis/Problem Admission Diagnosis/Problem Anaphylaxis Source of Information: Patient History Limitations: Reports: No Limitations - History of Present Illness Initial Comments - Free Text/Narative: This 54 year old male with pmh of DM type 2, Asthma and COPD presented to the ED with urticaria, hives, and tongue and facial swelling. he was previously seen in the [facility] ED a couple days ago for the same thing and did not picker medications. He reports this start last night and worse than previously. He felt like he couldn't talk and had a hard time breathing with his airway tightness. He denies chest pain. Rpeots wheezing and tight cough. he is not eposed to animal dander and is unable to tie symptoms to food or other exposure. he reports he was allergy tested 2 years ago but never followed up on it and reports his arm was significantly swollen. he denies tobacco use, no alcohol use and no recreational drug use. He denies fevers, chills, diarrhea or constipation. No urinary troubles. he is feeling much better from ED arrival In the ED slight RICKY noted, otherwise labs normal. he was treated with Solumedrol, Epinephrine IM, Benadryl. He will be admitted for anaphylaxis and angioedema - Related Data Allergies/Adverse Reactions: Allergies Allergy/AdvReac Type Severity Reaction Status Date / Time No Known Allergies Allergy Verified 04/15/20 03:42 Home Medications: Home Meds Albuterol [Ventolin HFA] 1 puff INH Q4H #1 inhaler 11/01/19 [Rx] Ipratropium [Atrovent] 0.5 mg .XX BID #30 neb 12/14/19 [Rx] Fluticasone/Salmeterol [Advair 250-50] 1 puff INH BID #1 diskus 01/19/20 [Rx] Albuterol/Ipratropium [DuoNeb 3.0-0.5 MG/3 ML] 1 dose INH Q4H PRN 04/12/20 [History] Cetirizine HCl [Zyrtec] 10 mg PO BID 14 Days #40 capsule 04/12/20 [Rx] EPINEPHrine [Epipen] 0.3 mg IM ONETIME #2 ml 04/12/20 [Rx] metFORMIN HCl [Metformin HCl ER] 500 mg PO BID 04/12/20 [History] predniSONE [Prednisone] 50 mg PO DAILY 5 Days #5 tablet 04/12/20 [Rx] Past Medical History HEENT History: Reports: None Cardiovascular History: Reports: None Respiratory History: Reports: Asthma, COPD Gastrointestinal History: Reports: None Genitourinary History: Reports: None Musculoskeletal History: Reports: None Neurological History: Reports: None Psychiatric History: Reports: None Endocrine/Metabolic History: Reports: None Hematologic History: Reports: None Immunologic History: Reports: None Oncologic (Cancer) History: Reports: None Dermatologic History: Reports: None - Infectious Disease History Infectious Disease History: Reports: None - Past Surgical History Head Surgeries/Procedures: Reports: None HEENT Surgical History: Reports: None Cardiovascular Surgical History: Reports: None Respiratory Surgical History: Reports: None GI Surgical History: Reports: None Male Surgical History: Reports: None Endocrine Surgical History: Reports: None Neurological Surgical History: Reports: None Musculoskeletal Surgical History: Reports: None Oncologic Surgical History: Reports: None Dermatological Surgical History: Reports: None Social & Family History - Family History Family Medical History: Noncontributory HEENT: Reports: None OBGYN: Reports: Oncologic: Reports: Leukemia - Tobacco Use Smoking Status *Q: Former Smoker Used Tobacco, but Quit: Yes Month/Year Tobacco Last Used: 2015 - Caffeine Use Caffeine Use: Reports: Coffee, Energy Drinks, Soda, Tea - Recreational Drug Use Recreational Drug Use: No H&P Review of Systems - Review of Systems: Review Of Systems: See Below General: Reports: No Symptoms. Denies: Fever, Chills, Malaise HEENT: Reports: Other (fullness in tongue) Pulmonary: Reports: Shortness of Breath, Wheezing, Cough. Denies: Sputum, Hemoptysis Cardiovascular: Reports: No Symptoms. Denies: Chest Pain, Palpitations Gastrointestinal: Reports: No Symptoms. Denies: Black Stool, Constipation, Nausea Genitourinary: Reports: No Symptoms. Denies: Dysuria, Frequency Musculoskeletal: Reports: No Symptoms Skin: Reports: No Symptoms Psychiatric: Reports: No Symptoms Neurological: Reports: No Symptoms Hematologic/Lymphatic: Reports: No Symptoms Immunologic: Reports: No Symptoms Exam - Exam Exam: See Below - Vital Signs Vital Signs: Last Vital Signs Temp 97.6 F 04/15/20 07:24 Pulse 79 04/15/20 07:24 Resp 16 04/15/20 07:24 BP 125/93 H 04/15/20 07:24 Pulse Ox 98 04/15/20 07:24 Weight: 85.729 kg - Exam General: Alert, Oriented, Cooperative HEENT: Other (mild angioedema noted to tongue and lips, patient reports much improved since arrival) Lungs: Decreased Breath Sounds (throughout) Cardiovascular: Regular Rate, Regular Rhythm GI/Abdominal Exam: Normal Bowel Sounds, Soft, Non-Tender Back Exam: Normal Inspection Extremities: Normal Inspection, Normal Range of Motion, Non-Tender, No Pedal Edema - Patient Data Lab Results Last 24 hrs: Laboratory Results - last 24 hr 04/15/20 04/15/20 04/15/20 Range/Units 03:45 03:45 04:52 WBC 9.54 (4.0-11.0) K/uL RBC 5.26 (4.50-5.90) M/uL Hgb 15.4 (13.0-17.0) g/dL Hct 46.3 (38.0-50.0) % MCV 88.0 (80.0-98.0) fL MCH 29.3 (27.0-32.0) pg MCHC 33.3 (31.0-37.0) g/dL RDW Std Deviation 49.8 (28.0-62.0) fl RDW Coeff of Cortes 16 H (11.0-15.0) % Plt Count 246 (150-400) K/uL MPV 10.70 (7.40-12.00) fL Add Manual Diff YES Neutrophils % (Manual) 60 (48.0-80.0) % Lymphocytes % (Manual) 34 (16.0-40.0) % Monocytes % (Manual) 5 (0.0-15.0) % Eosinophils % (Manual) 1 (0.0-7.0) % Nucleated RBC % 0.0 /100WBC Absolute Seg Neuts 5.7 (1.4-5.7) Lymphocytes # (Manual) 3.2 H (0.6-2.4) Monocytes # (Manual) 0.5 (0.0-0.8) Eosinophils # (Manual) 0.1 (0.0-0.7) Nucleated RBCs # 0 K/uL Sodium 141 (136-148) mmol/L Potassium 3.6 (3.5-5.1) mmol/L Chloride 105 (98-107) mmol/L Carbon Dioxide 26.4 (21.0-32.0) mmol/L BUN 21 H (7.0-18.0) mg/dL Creatinine 1.8 H (0.8-1.3) mg/dL Est Cr Clr Drug Dosing 43.35 mL/min Estimated GFR (MDRD) 47.7 ml/min Glucose 169 H (74-106) mg/dL Calcium 7.8 L (8.5-10.1) mg/dL Troponin I < 0.050 (0.000-0.056) ng/mL Urine Color Urine Appearance Urine pH (5.0-8.0) Ur Specific [place] (1.001-1.035) Urine Protein (NEGATIVE) mg/dL Urine Glucose (UA) (NEGATIVE) mg/dL Urine Ketones (NEGATIVE) mg/dL Urine Occult Blood (NEGATIVE) Urine Nitrite (NEGATIVE) Urine Bilirubin (NEGATIVE) Urine Urobilinogen (<2.0) EU/dL Ur Leukocyte Esterase (NEGATIVE) SARS-CoV-2 RNA (JASS) NEGATIVE (NEGATIVE) 04/15/20 Range/Units 05:05 WBC (4.0-11.0) K/uL RBC (4.50-5.90) M/uL Hgb (13.0-17.0) g/dL Hct (38.0-50.0) % MCV (80.0-98.0) fL MCH (27.0-32.0) pg MCHC (31.0-37.0) g/dL RDW Std Deviation (28.0-62.0) fl RDW Coeff of Cortes (11.0-15.0) % Plt Count (150-400) K/uL MPV (7.40-12.00) fL Add Manual Diff Neutrophils % (Manual) (48.0-80.0) % Lymphocytes % (Manual) (16.0-40.0) % Monocytes % (Manual) (0.0-15.0) % Eosinophils % (Manual) (0.0-7.0) % Nucleated RBC % /100WBC Absolute Seg Neuts (1.4-5.7) Lymphocytes # (Manual) (0.6-2.4) Monocytes # (Manual) (0.0-0.8) Eosinophils # (Manual) (0.0-0.7) Nucleated RBCs # K/uL Sodium (136-148) mmol/L Potassium (3.5-5.1) mmol/L Chloride (98-107) mmol/L Carbon Dioxide (21.0-32.0) mmol/L BUN (7.0-18.0) mg/dL Creatinine (0.8-1.3) mg/dL Est Cr Clr Drug Dosing mL/min Estimated GFR (MDRD) ml/min Glucose (74-106) mg/dL Calcium (8.5-10.1) mg/dL Troponin I (0.000-0.056) ng/mL Urine Color YELLOW Urine Appearance CLEAR Urine pH 6.5 (5.0-8.0) Ur Specific [place] 1.015 (1.001-1.035) Urine Protein NEGATIVE (NEGATIVE) mg/dL Urine Glucose (UA) NEGATIVE (NEGATIVE) mg/dL Urine Ketones NEGATIVE (NEGATIVE) mg/dL Urine Occult Blood NEGATIVE (NEGATIVE) Urine Nitrite NEGATIVE (NEGATIVE) Urine Bilirubin NEGATIVE (NEGATIVE) Urine Urobilinogen 0.2 (<2.0) EU/dL Ur Leukocyte Esterase NEGATIVE (NEGATIVE) SARS-CoV-2 RNA (JASS) (NEGATIVE) Result Diagrams: 04/15/20 03:45 04/15/20 03:45 Sepsis Event Note - Evaluation Sepsis Screening Result: No Definite Risk - Focused Exam Vital Signs: Vital Signs Temp Pulse Resp BP Pulse Ox 04/15/20 07:24 97.6 F 79 16 125/93 H 98 04/15/20 06:20 97.6 F 79 20 125/93 H 98 04/15/20 05:45 96.8 F L 82 18 117/82 98 04/15/20 04:45 75 18 121/89 98 04/15/20 03:39 96.9 F 91 18 135/75 97 - Problem List (1) COPD (chronic obstructive pulmonary disease) SNOMED Code(s): 94279563 ICD Code: J44.9 - CHRONIC OBSTRUCTIVE PULMONARY DISEASE, UNSPECIFIED Status: Acute Current Visit: Yes (2) Angioedema SNOMED Code(s): 54434036 ICD Code: T78.3XXA - ANGIONEUROTIC EDEMA, INITIAL ENCOUNTER Status: Acute Current Visit: Yes (3) Anaphylactic reaction SNOMED Code(s): 71847448 ICD Code: T78.2XXA - ANAPHYLACTIC SHOCK, UNSPECIFIED, INITIAL ENCOUNTER Status: Acute Current Visit: Yes (4) Exacerbation of asthma SNOMED Code(s): 202604238 ICD Code: J45.901 - UNSPECIFIED ASTHMA WITH (ACUTE) EXACERBATION Status: Acute Current Visit: No (5) HTN (hypertension) SNOMED Code(s): 16333836 ICD Code: I10 - ESSENTIAL (PRIMARY) HYPERTENSION Status: Acute Current Visit: No (6) Urticaria SNOMED Code(s): 401313980 ICD Code: L50.9 - URTICARIA, UNSPECIFIED Status: Acute Current Visit: No Problem List Initiated/Reviewed/Updated: Yes Orders Last 24hrs: Active Orders 24 hr Category Date Time Status Patient Status [ADT] Routine ADT 04/15/20 04:46 Active Antiembolic Devices [RC] PER UNIT ROUTINE Care 04/15/20 07:50 Ordered Blood Glucose Check, Bedside [RC] TIDMEALS Care 04/15/20 07:55 Ordered Influenza Vaccine Charge [RC] .DISCHARGE Care 04/15/20 06:49 Active Intake and Output [RC] QSHIFT Care 04/15/20 07:49 Ordered Oxygen Therapy [RC] PRN Care 04/15/20 07:49 Ordered RT Aerosol Therapy [RC] ASDIRECTED Care 04/15/20 07:53 Ordered RT Post Treatment Assessment [RC] Click to Edit Care 04/15/20 07:53 Ordered RT Pre-Treatment Assessment [RC] Click to Edit Care 04/15/20 07:53 Ordered Telemetry Monitoring [Cardiac Monitoring] [RC] . Care 04/15/20 04:55 Active DIRECTED Up With Assistance [RC] ASDIRECTED Care 04/15/20 07:49 Ordered VTE/DVT Education [RC] PER UNIT ROUTINE Care 04/15/20 07:49 Ordered Vital Signs [RC] Q4H Care 04/15/20 07:49 Ordered Clear Liquid Diet [DIET] Diet 04/15/20 Breakfast Ordered BASIC METABOLIC PANEL,BMP [CHEM] AM Lab 04/16/20 05:11 Ordered CBC WITH AUTO DIFF [HEME] AM Lab 04/16/20 05:11 Ordered Acetaminophen [TylenoL] Med 04/15/20 07:49 Ordered 650 mg PO Q4H PRN Albuterol/Ipratropium [DuoNeb 3.0-0.5 MG/3 ML] Med 04/15/20 07:53 Ordered 1 dose INH Q4H PRN EPINEPHrine [Adrenalin] Med 04/15/20 07:54 Ordered 0.5 mg IM ASDIRECTED PRN Famotidine [Pepcid] Med 04/15/20 09:00 Ordered 20 mg IVPUSH DAILY Fluticasone/Salmeterol [Advair Diskus 250-50] Med 04/15/20 09:00 Ordered 1 puff INH BID Insulin Aspart [NovoLOG] Med 04/15/20 11:30 Ordered See Protocol SUBCUT TIDAC Loratadine [Claritin] Med 04/15/20 09:00 Ordered 10 mg PO DAILY Ondansetron [Zofran] Med 04/15/20 07:49 Ordered 4 mg IVPUSH Q4H PRN Pharmacy to Dose - InFluenza V [Pharmacy to Dose - Med 04/15/20 06:48 Once InFluenza Vaccine] 1 each IM ONETIME ONE Sodium Chloride 0.9% [Normal Saline] 1,000 ml Med 04/15/20 08:00 Ordered IV Q8H Sodium Chloride 0.9% [Saline Flush] Med 04/15/20 07:49 Ordered 2.5 ml FLUSH ASDIRECTED PRN diphenhydrAMINE [Benadryl] Med 04/15/20 07:52 Ordered 25 mg IVPUSH Q6H PRN methylPREDNISolone Sod Succ [Solu-MEDROL] Med 04/15/20 11:00 Ordered 40 mg IVPUSH Q6H Saline Lock Insert [OM.PC] Routine Oth 04/15/20 07:49 Ordered Sequential Compression Device [OM.PC] Per Unit Routine Oth 04/15/20 07:49 Ordered Resuscitation Status Routine Resus Stat 04/15/20 07:49 Ordered Medication Orders Acetaminophen (Tylenol) 650 mg PO Q4H PRN PRN Reason: Pain (Mild 1-3)/fever Albuterol/Ipratropium (Duoneb 3.0-0.5 Mg/3 Ml) ml INH Q4H PRN PRN Reason: Dyspnea Diphenhydramine HCl (Benadryl) 25 mg IVPUSH Q6H PRN PRN Reason: itching/allergic reaction Epinephrine HCl (Adrenalin) 0.5 mg IM ASDIRECTED PRN PRN Reason: ANAPHYLAXIS Famotidine (Pepcid) 20 mg IVPUSH DAILY [facility] Sodium Chloride (Normal Saline) 1,000 mls @ 125 mls/hr IV Q8H [facility] Influenza Virus Vaccine (Pharmacy To Dose - Influenza Vaccine) 1 each IM ONETIME ONE Stop: 04/15/20 06:49 Insulin Aspart (Novolog) 0 unit SUBCUT TIDAC KVNG; Protocol Loratadine (Claritin) 10 mg PO DAILY [facility] Methylprednisolone Sodium Succinate (Solu-Medrol) 40 mg IVPUSH Q6H [facility] Ondansetron HCl (Zofran) 4 mg IVPUSH Q4H PRN PRN Reason: Nausea Fluticasone/Salmeterol (Advair Diskus 250-50) 1 puff INH BID [facility] Sodium Chloride (Saline Flush) 2.5 ml FLUSH ASDIRECTED PRN PRN Reason: Keep Vein Open Assessment/Plan Comment:: This 54 year old male admitted with anaphylaxis and angioedema along with asthma 1. Anaphylaxis/angioedema - Continue Solumedrol 125 mg IV q6h - Loratadine 10 mg BID - Pepcid daily - Benadryl PRN - Epinephrine IM PRN anaphylaxis - Obtain records from previous allergy testing 2. DM Type2: - Novolog SSI with meals - Monitor BS with Steroids - Hold metformin for now VTE prophylaxis: SCDs Dispo: in am - Mortality Measure Prognosis:: Good
[2020-04-15] MEDS: Fluticasone/Salmeterol 250-50 MCG Inhalation Powder 14/Diskus INH SCH ×2 (08:19→21:54)
[2020-04-15] MEDS: Sodium Chloride 0.9% 1,000 ML IV SCH ×2 (08:28→16:25)
[2020-04-15] MEDS ORDERED: Famotidine 20 MG/2 ML SDV IVPUSH SCH (09:00)
[2020-04-15] MEDS ORDERED: Loratadine 10 MG Tab PO SCH ×2 (09:00→21:00)
[2020-04-15] MEDS ORDERED: methylPREDNISolone Sodium Succinate 40 MG/1 ML SDV IVPUSH SCH ×2 (11:00)
[2020-04-15] MEDS: Insulin Aspart 100 Units/ML 3 ML Pen SUBCUT SCH ×4 (11:48→22:36)
[2020-04-15] MEDS ORDERED: methylPREDNISolone Sodium Succinate 125 MG/2 ML SDV IVPUSH SCH (17:00)
[2020-04-15] MEDS ORDERED: Insulin Aspart 100 Units/ML 3 ML Pen SUBCUT ONE ×2 (18:27→22:35)
[2020-04-16] MEDS: Sodium Chloride 0.9% 1,000 ML IV SCH (00:54)
[2020-04-16] MEDS ORDERED: methylPREDNISolone Sodium Succinate 40 MG/1 ML SDV IVPUSH SCH (01:00)
[2020-04-16 06:32] LABS: BLOOD UREA NITROGEN,BUN 17 mg/dL (7.0-18.0); CARBON DIOXIDE,CO2 26.3 mmol/L (21.0-32.0); CHLORIDE,CL 104 mmol/L (98-107); GLUCOSE RANDOM 227 mg/dL (74-106); SODIUM,NA 139 mmol/L (136-148)
[2020-04-16] MEDS: Insulin Aspart 100 Units/ML 3 ML Pen SUBCUT SCH (06:45)
--- NOTE | 2020-04-16 07:52 | PCM.DCSUM1 ---
Discharge Summary - Hospital Course Brief History: This 54 year old male with pmh of DM type 2, Asthma and COPD presented to the ED with urticaria, hives, and tongue and facial swelling. 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 He reports this start last night and worse than previously. He felt like he couldn't talk and had a hard time breathing with his airway tightness. He denies chest pain. Rpeots wheezing and tight cough. he is not eposed to animal dander and is unable to tie symptoms to food or other exposure. he reports he was allergy tested 2 years ago but never followed up on it and reports his arm was significantly swollen. he denies tobacco use, no alcohol use and no recreational drug use. He denies fevers, chills, diarrhea or constipation. No urinary troubles. he is feeling much better from ED arrival. In the ED slight RICKY noted, otherwise labs normal. he was treated with Solumedrol, Epinephrine IM, Benadryl. He will be admitted for anaphylaxis and angioedema - Discharge Data Discharge Date: 04/16/20 Discharge Disposition: Home, Self-Care 01 Condition: Good - Referral to Home Health Primary Care Physician: PCP None - Discharge Diagnosis/Problem(s) (1) COPD (chronic obstructive pulmonary disease) SNOMED Code(s): 81148161 ICD Code: J44.9 - CHRONIC OBSTRUCTIVE PULMONARY DISEASE, UNSPECIFIED Status: Acute (2) Angioedema SNOMED Code(s): 64549988 ICD Code: T78.3XXA - ANGIONEUROTIC EDEMA, INITIAL ENCOUNTER Status: Acute (3) Anaphylactic reaction SNOMED Code(s): 29297133 ICD Code: T78.2XXA - ANAPHYLACTIC SHOCK, UNSPECIFIED, INITIAL ENCOUNTER Status: Acute (4) Exacerbation of asthma SNOMED Code(s): 385741236 ICD Code: J45.901 - UNSPECIFIED ASTHMA WITH (ACUTE) EXACERBATION Status: Acute (5) HTN (hypertension) SNOMED Code(s): 23534771 ICD Code: I10 - ESSENTIAL (PRIMARY) HYPERTENSION Status: Acute (6) Urticaria SNOMED Code(s): 392922817 ICD Code: L50.9 - URTICARIA, UNSPECIFIED Status: Acute - Patient Summary/Data Hospital Course: Admitting Diagnoses: Anaphylaxis Angioedema Discharge Diagnoses: Anaphylaxis Angioedema Vamsi was admitted and treated with Solumedrol, Pepcid, Benadryl. He was feeling much improved today, wheezing has improved as well. No chest pain or SOB. He is very eager for discharge home. He is to continue Prednisone taper from ED along with picking up his Epipen. he is to Continue Loratadine BID for 14 days. He is to continue using inhalers for asthma and COPD as these are maintenance. Monitor what he comes into contact with and noticed any reactions. He is to follow up with PCP in 1 week. Return to the ED or clinic if concerns should arise. - Patient Instructions Diet: Diabetic Diet Activity: As Tolerated Showering/Bathing: May Shower Notify Provider of: Fever, Increased Pain, Swelling and Redness, Drainage, Nausea and/or Vomiting - Discharge Plan *PRESCRIPTION DRUG MONITORING PROGRAM REVIEWED*: Not Applicable *COPY OF PRESCRIPTION DRUG MONITORING REPORT IN PATIENT ELIECER: Not Applicable Prescriptions/Med Rec: Albuterol Sulfate [Albuterol Sulfate Hfa] 1 - 2 puff IH Q4H PRN #1 hfa.aer.ad PRN Reason: Shortness Of Breath Loratadine [Claritin] 10 mg PO BID #30 tablet Famotidine [Pepcid] 20 mg PO DAILY #14 tab Home Medications: Home Meds Albuterol [Ventolin HFA] 1 puff INH Q4H #1 inhaler 11/01/19 [Rx] Ipratropium [Atrovent] 0.5 mg .XX BID #30 neb 12/14/19 [Rx] Fluticasone/Salmeterol [Advair 250-50] 1 puff INH BID #1 diskus 01/19/20 [Rx] Albuterol/Ipratropium [DuoNeb 3.0-0.5 MG/3 ML] 1 dose INH Q4H PRN 04/12/20 [History] EPINEPHrine [Epipen 2-Carlyle] 0.3 mg IM ONETIME #2 ml 04/12/20 [Rx] metFORMIN HCl [Metformin HCl ER] 500 mg PO BID 04/12/20 [History] predniSONE [Prednisone] 50 mg PO DAILY 5 Days #5 tablet 04/12/20 [Rx] Famotidine [Pepcid] 20 mg PO DAILY #14 tab 04/15/20 [Rx] Loratadine [Claritin] 10 mg PO BID #30 tablet 04/15/20 [Rx] Albuterol Sulfate [Albuterol Sulfate Hfa] 1 - 2 puff IH Q4H PRN #1 hfa.aer.ad 04/16/20 [Rx] Oxygen Therapy Mode: Room Air Patient Handouts: Famotidine tablets or gelcaps, Anaphylactic Reaction, Adult, Allergies, Adult, Loratadine capsules or tablets Referrals: John Griffith MD [Ordering Only Provider] - 04/22/20 1:00 pm (Please come 15 minutes early with your ID and insurance card and wearing a face covering. ) - Discharge Summary/Plan Comment DC Time >30 min.: No - Patient Data Vitals - Most Recent: Last Vital Signs Temp 97.4 F 04/16/20 04:26 Pulse 88 04/16/20 04:26 Resp 16 04/16/20 04:26 BP 130/67 04/16/20 04:26 Pulse Ox 95 04/16/20 04:26 Weight - Most Recent: 85.729 kg I&O - Last 24 hours: Intake & Output 04/15/20 04/16/20 04/16/20 22:59 06:59 14:59 Intake Total 1863 250 Output Total 1200 Balance 663 250 Lab Results - Last 24 hrs: Laboratory Results - last 24 hr 04/15/20 04/15/20 04/15/20 Range/Units 11:14 17:14 18:06 WBC (4.0-11.0) K/uL RBC (4.50-5.90) M/uL Hgb (13.0-17.0) g/dL Hct (38.0-50.0) % MCV (80.0-98.0) fL MCH (27.0-32.0) pg MCHC (31.0-37.0) g/dL RDW Std Deviation (28.0-62.0) fl RDW Coeff of Cortes (11.0-15.0) % Plt Count (150-400) K/uL MPV (7.40-12.00) fL Neut % (Auto) (48.0-80.0) % Lymph % (Auto) (16.0-40.0) % Dent % (Auto) (0.0-15.0) % Eos % (Auto) (0.0-7.0) % Baso % (Auto) (0.0-1.5) % Neut # (Auto) (1.4-5.7) K/uL Lymph # (Auto) (0.6-2.4) K/uL Dent # (Auto) (0.0-0.8) K/uL Eos # (Auto) (0.0-0.7) K/uL Baso # (Auto) (0.0-0.1) K/uL Nucleated RBC % /100WBC Nucleated RBCs # K/uL Sodium (136-148) mmol/L Potassium (3.5-5.1) mmol/L Chloride (98-107) mmol/L Carbon Dioxide (21.0-32.0) mmol/L BUN (7.0-18.0) mg/dL Creatinine (0.8-1.3) mg/dL Est Cr Clr Drug Dosing mL/min Estimated GFR (MDRD) ml/min Glucose (74-106) mg/dL POC Glucose 306 H 401 H 335 H (60-110) mg/dL Calcium (8.5-10.1) mg/dL 04/15/20 04/15/20 04/16/20 Range/Units 20:01 21:40 01:57 WBC (4.0-11.0) K/uL RBC (4.50-5.90) M/uL Hgb (13.0-17.0) g/dL Hct (38.0-50.0) % MCV (80.0-98.0) fL MCH (27.0-32.0) pg MCHC (31.0-37.0) g/dL RDW Std Deviation (28.0-62.0) fl RDW Coeff of Cortes (11.0-15.0) % Plt Count (150-400) K/uL MPV (7.40-12.00) fL Neut % (Auto) (48.0-80.0) % Lymph % (Auto) (16.0-40.0) % Dent % (Auto) (0.0-15.0) % Eos % (Auto) (0.0-7.0) % Baso % (Auto) (0.0-1.5) % Neut # (Auto) (1.4-5.7) K/uL Lymph # (Auto) (0.6-2.4) K/uL Dent # (Auto) (0.0-0.8) K/uL Eos # (Auto) (0.0-0.7) K/uL Baso # (Auto) (0.0-0.1) K/uL Nucleated RBC % /100WBC Nucleated RBCs # K/uL Sodium (136-148) mmol/L Potassium (3.5-5.1) mmol/L Chloride (98-107) mmol/L Carbon Dioxide (21.0-32.0) mmol/L BUN (7.0-18.0) mg/dL Creatinine (0.8-1.3) mg/dL Est Cr Clr Drug Dosing mL/min Estimated GFR (MDRD) ml/min Glucose (74-106) mg/dL POC Glucose 363 H 352 H 284 H (60-110) mg/dL Calcium (8.5-10.1) mg/dL 04/16/20 04/16/20 04/16/20 Range/Units 04:48 04:48 06:09 WBC 15.39 H (4.0-11.0) K/uL RBC 4.95 (4.50-5.90) M/uL Hgb 14.6 (13.0-17.0) g/dL Hct 43.1 (38.0-50.0) % MCV 87.1 (80.0-98.0) fL MCH 29.5 (27.0-32.0) pg MCHC 33.9 (31.0-37.0) g/dL RDW Std Deviation 49.1 (28.0-62.0) fl RDW Coeff of Cortes 15 (11.0-15.0) % Plt Count 231 (150-400) K/uL MPV 11.30 (7.40-12.00) fL Neut % (Auto) 90.6 H (48.0-80.0) % Lymph % (Auto) 6.5 L (16.0-40.0) % Dent % (Auto) 2.9 (0.0-15.0) % Eos % (Auto) 0.0 (0.0-7.0) % Baso % (Auto) 0.0 (0.0-1.5) % Neut # (Auto) 13.9 H (1.4-5.7) K/uL Lymph # (Auto) 1.0 (0.6-2.4) K/uL Dent # (Auto) 0.5 (0.0-0.8) K/uL Eos # (Auto) 0.0 (0.0-0.7) K/uL Baso # (Auto) 0.0 (0.0-0.1) K/uL Nucleated RBC % 0.0 /100WBC Nucleated RBCs # 0 K/uL Sodium 139 (136-148) mmol/L Potassium 4.0 (3.5-5.1) mmol/L Chloride 104 (98-107) mmol/L Carbon Dioxide 26.3 (21.0-32.0) mmol/L BUN 17 (7.0-18.0) mg/dL Creatinine 1.1 (0.8-1.3) mg/dL Est Cr Clr Drug Dosing 70.77 mL/min Estimated GFR (MDRD) > 60.0 ml/min Glucose 227 H (74-106) mg/dL POC Glucose 210 H (60-110) mg/dL Calcium 8.2 L (8.5-10.1) mg/dL Med Orders - Current: Current Medications Acetaminophen (Tylenol) 650 mg PO Q4H PRN PRN Reason: Pain (Mild 1-3)/fever Albuterol/Ipratropium (Duoneb 3.0-0.5 Mg/3 Ml) 3 ml INH Q4H PRN PRN Reason: Dyspnea Last Admin: 04/15/20 08:20 Dose: 3 ml Documented by: Diphenhydramine HCl (Benadryl) 25 mg IVPUSH Q6H PRN PRN Reason: itching/allergic reaction Last Admin: 04/15/20 23:10 Dose: 25 mg Documented by: Epinephrine HCl (Adrenalin) 0.5 mg IM ASDIRECTED PRN PRN Reason: ANAPHYLAXIS Famotidine (Pepcid) 20 mg IVPUSH DAILY [facility] Last Admin: 04/15/20 08:30 Dose: 20 mg Documented by: Sodium Chloride (Normal Saline) 1,000 mls @ 125 mls/hr IV Q8H [facility] Last Admin: 04/16/20 00:54 Dose: 125 mls/hr Documented by: Influenza Virus Vaccine (Pharmacy To Dose - Influenza Vaccine) 1 each IM ONETIME ONE Stop: 04/20/20 06:49 Influenza Virus Vaccine (Fluzone Quad Syringe) 60 mcg IM .ONCE ONE Stop: 04/20/20 09:01 Insulin Aspart (Novolog) 0 unit SUBCUT TIDAC [facility]; Protocol Last Admin: 04/16/20 06:45 Dose: 4 units Documented by: Loratadine (Claritin) 10 mg PO BID [facility] Last Admin: 04/15/20 21:50 Dose: 10 mg Documented by: Methylprednisolone Sodium Succinate (Solu-Medrol) 40 mg IVPUSH Q8H [facility] Last Admin: 04/16/20 00:57 Dose: 40 mg Documented by: Ondansetron HCl (Zofran) 4 mg IVPUSH Q4H PRN PRN Reason: Nausea Fluticasone/Salmeterol (Advair Diskus 250-50) 1 puff INH BID [facility] Last Admin: 04/15/20 21:54 Dose: 1 inhalation Documented by: Sodium Chloride (Saline Flush) 2.5 ml FLUSH ASDIRECTED PRN PRN Reason: Keep Vein Open Discontinued Medications Diphenhydramine HCl (Benadryl) 50 mg IVPUSH ONETIME ONE Stop: 04/15/20 03:42 Last Admin: 04/15/20 03:46 Dose: 50 mg Documented by: Diphenhydramine HCl (Benadryl) Confirm Administered Dose 50 mg .ROUTE .STK-MED ONE Stop: 04/15/20 03:42 Last Admin: 04/15/20 03:48 Dose: Not Given Documented by: Diphenhydramine HCl (Benadryl) Confirm Administered Dose 50 mg .ROUTE .STK-MED ONE Stop: 04/15/20 04:29 Last Admin: 04/15/20 04:35 Dose: Not Given Documented by: Diphenhydramine HCl (Benadryl) 25 mg IVPUSH ONETIME ONE Stop: 04/15/20 04:35 Last Admin: 04/15/20 04:35 Dose: 25 mg Documented by: Epinephrine HCl (Adrenalin) 0.5 mg IM ONETIME ONE Stop: 04/15/20 03:42 Last Admin: 04/15/20 03:45 Dose: 0.5 mg Documented by: Epinephrine HCl (Adrenalin) Confirm Administered Dose 1 mg .ROUTE .STK-MED ONE Stop: 04/15/20 03:42 Last Admin: 04/15/20 03:48 Dose: Not Given Documented by: Epinephrine HCl (Adrenalin) 0.5 mg IM ONETIME ONE Stop: 04/15/20 04:42 Last Admin: 04/15/20 04:53 Dose: 0.5 mg Documented by: Sodium Chloride (Normal Saline) 1,000 mls @ 2,000 mls/hr IV .Bolus ONE Stop: 04/15/20 04:11 Last Admin: 04/15/20 03:47 Dose: 2,000 mls/hr Documented by: Insulin Aspart (Novolog) [facility]; Protocol Last Admin: 04/15/20 17:28 Dose: 5 unit Documented by: Insulin Aspart (Novolog) 3 unit SUBCUT ONETIME ONE Stop: 04/15/20 18:28 Last Admin: 04/15/20 18:41 Dose: 3 units Documented by: Insulin Aspart (Novolog) 8 unit SUBCUT ONETIME ONE Stop: 04/15/20 22:36 Last Admin: 04/15/20 23:06 Dose: 8 units Documented by: Loratadine (Claritin) 10 mg PO DAILY [facility] Last Admin: 04/15/20 09:05 Dose: 10 mg Documented by: Methylprednisolone Sodium Succinate (Solu-Medrol) 125 mg IVPUSH ONETIME ONE Stop: 04/15/20 04:41 Last Admin: 04/15/20 04:53 Dose: 125 mg Documented by: Methylprednisolone Sodium Succinate (Solu-Medrol) 40 mg IVPUSH Q6H [facility] Methylprednisolone Sodium Succinate (Solu-Medrol) 125 mg IVPUSH Q6H [facility] Last Admin: 04/15/20 10:46 Dose: 125 mg Documented by: Methylprednisolone Sodium Succinate (Solu-Medrol) 125 mg IVPUSH Q6H [facility] Last Admin: 04/15/20 17:20 Dose: 125 mg Documented by:
[2020-04-20] MEDS ORDERED: FLU VACC QS2020-21(6MOS UP)/PF 60 MCG/0.5 ML SYRINGE IM ONE (09:00)
== END 2020-04-16 08:40 | disposition home or self-care (01) ==
LOC: MW.ED 03:31 → MW.MS 04:46
PROVIDERS: ADMIT Internal Medicine; ATTEND Internal Medicine
DX: T78.2XXA Anaphylactic shock, unspecified, initial encounter (principal); T78.3XXA Angioneurotic edema, initial encounter; J44.9 Chronic obstructive pulmonary disease, unspecified; E11.9 Type 2 diabetes mellitus without complications; Z20.828 Contact with and (suspected) exposure to other viral communicable diseases; Z79.84 Long term (current) use of oral hypoglycemic drugs; Z79.51 Long term (current) use of inhaled steroids; Z87.891 Personal history of nicotine dependence
CPT/HCPCS: 36415; 71045; 80048; 81003; 82962; 84484; 85025; 87635; 93005; 94640; 94664; 96361; 96372; 96374; 96375; 96376; 99285; A9270; G0378; J0171; J1200; J1815; J2920; J2930; J3490; J7030; 99217; 99218; 99291; J7620-GY; U0002